=== PATIENT | male | born 1965 | race Caucasian/White ===

== ENCOUNTER 2018-01-21 11:19 | Emergency (ER) | payer OTHER ==
--- NOTE | 2018-01-21 12:50 | ED Physician Documentation ---
PD HPI CPR - Stated complaint Stated Complaint: RT ARM PAIN - Chief complaint Chief Complaint: Cardiac - History obtained from History obtained from: Patient - History of Present Illness Timing - onset: How many hours ago (3) Timing - onset during: Exertion Preceding symptoms: No: Chest pain, Neck pain, Abdominal pain, Back pain, Dyspnea, Diaphoresis, Palpitations, Weakness, NV Contributing factors: No: CAD, Diabetes, Terminal disease, Recent hospital/surgery Recently seen: Not recently seen Fall: No: Fell down, No fall - Additional information Additional information: 52-year-old male with no past medical history and remote cholecystectomy, ambidextrous here from work complaining of right shoulder pain after lifting 30- 40 pounds of wood pellets at work about 2 hours ago. He stated the right shoulder pain radiated down his right arm and now with tingling between his second and third fingers dorsally. Patient denies any recent illness or trauma. Although he stated 4 days ago he had runny nose and body aches. He stated he never had his flu shot. He denies any travel, sick contacts Review of Systems Ten Systems: 10 systems reviewed and negative Constitutional: reports: Myalgias. denies: Fever, Chills Nose: reports: Rhinorrhea / runny nose Cardiac: denies: Chest pain / pressure Respiratory: denies: Dyspnea, Cough GI: denies: Abdominal Pain, Nausea, Vomiting, Diarrhea Musculoskeletal: reports: Extremity pain. denies: Neck pain, Back pain, Extremity swelling Neurologic: denies: Generalized weakness, Focal weakness, Numbness, Head injury PD PAST MEDICAL HISTORY - Past Medical History Past Medical History: Yes Cardiovascular: Hypertension - Past Surgical History Past Surgical History: No - Present Medications Home Medications: Ambulatory Orders Medication Instructions Recorded Confirmed Hydrochlorothiazide 12.5 mg PO DAILY #20 tablet 01/21/18 Ibuprofen [Motrin] 800 mg PO Q8H PRN #30 tablet 01/21/18 Lisinopril 10 mg PO DAILY #20 tablet 01/21/18 - Allergies Allergies/Adverse Reactions: Allergies Allergy/AdvReac Type Severity Reaction Status Date / Time No Known Drug Allergies Allergy Verified 01/21/18 11:26 - Social History Does the pt smoke?: Yes Smoking Status: Former smoker Does the pt drink ETOH?: Yes Does the pt have substance abuse?: No - POLST Patient has POLST: No PD ED PE NORMAL - Vitals Vital signs reviewed: Yes - General General: Alert and oriented X 3, No acute distress, Well developed/nourished - HEENT HEENT: EOMI, Moist mucous membranes, Pharynx benign - Neck Neck: Supple, no meningeal sign, No bony TTP - Cardiac Cardiac: RRR, No murmur - Respiratory Respiratory: No respiratory distress, Clear bilaterally - Abdomen Abdomen: Normal bowel sounds, Soft, Non tender, Non distended - Back Back: No CVA TTP, No spinal TTP - Derm Derm: Normal color, Warm and dry - Extremities Extremities: No deformity, No edema, No calf tenderness / cord, Other (Right shoulder with mild point tenderness of the rotator cuff. Patient expressed discomfort when he attempted to extend, hyperextend and abduction of his right shoulder. Sensation intact temperature normal. Capillary refill less than 2 seconds. Pulses +2 throughout. Hand grasps bilaterally strong 5/5. Right hand no swelling and no tenderness to palpation.) - Neuro Neuro: Alert and oriented X 3 - Psych Psych: Normal mood, Normal affect Results - Vitals Vitals: Vital Signs - 24 hr 01/21/18 01/21/18 01/21/18 11:24 12:08 13:03 Temperature 37.2 C Heart Rate 100 90 92 Respiratory 18 16 16 Rate Blood Pressure 242/124 H 214/128 H 203/118 H O2 Saturation 96 98 97 01/21/18 01/21/18 01/21/18 13:51 13:57 14:23 Temperature Heart Rate 94 Respiratory 16 Rate Blood Pressure 210/120 H 212/110 H 214/129 H O2 Saturation 98 01/21/18 01/21/18 14:42 15:18 Temperature Heart Rate 88 Respiratory Rate Blood Pressure 209/123 H 191/116 H O2 Saturation Oxygen O2 Source Room air - EKG (time done) 1156 Rate: Rate (enter#) Rhythm: NSR Lagrange: Normal Intervals: Normal WA QRS: Normal Ischemia: T wave inversion (Slight T inversion of leads III and aVF.) - Labs Labs: Laboratory Tests 01/21/18 01/21/18 13:05 14:01 POC Whole Bld Glucose 226 H Influenza A (Rapid) Negative Influenza B (Rapid) Negative PD MEDICAL DECISION MAKING - ED course Complexity details: reviewed results, re-evaluated patient, considered differential (Rotator cuff injury, shoulder strain, carpal tunnel syndrome, flu), d/w patient, d/w family ED course: 1345 patient informed of test results. And filled up his work related injury forms. Patient's blood pressure elevated. Patient now tells me that he has history of hypertension and has not taken any medication the past 3 years because he was unemployed got and was homeless. He just started working for [employer] so his insurance has not kicked in yet. Patient refused any labs. He did agreed to treat his right shoulder pain and try Nitropaste for the blood pressure. 1444 his blood pressure continued to be elevated. Will try clonidine and explained to the patient side effects from it. 1532 patient's blood pressure improved is now systolic blood pressure of 191. Patient continues to deny any headaches dizziness chest pain or shortness of breath. Discussed outpatient follow-up with patient. Patient's father is at the bedside and he will make sure to call his primary doctor tomorrow to get an appointment for the patient. Patient will be discharged on lisinopril. Departure - Departure Disposition: Home, Self Care Clinical Impression: Right shoulder injury Qualifiers: Encounter type: initial encounter Qualified Code(s): S49.91XA - Unspecified injury of right shoulder and upper arm, initial encounter Hypertension Qualifiers: Hypertension type: essential hypertension Qualified Code(s): I10 - Essential (primary) hypertension Condition: Stable Instructions: ED HTN Established, ED Shoulder Pain UKO Prescriptions: Hydrochlorothiazide 12.5 mg PO DAILY #20 tablet Ibuprofen [Motrin] 800 mg PO Q8H PRN #30 tablet PRN Reason: PAIN &/OR FEVER Lisinopril 10 mg PO DAILY #20 tablet Comments: Take the prescribed medications.When taking Motrin make sure you take it with food. You may continue the Salonpas that you use for your back pain. Take the blood pressure medications: Lisinopril and hydrochlorothiazide as prescribed. Blood pressure medication may cause you to have dizziness, lightheadedness and increased urination. With increased urination you may decrease your potassium and sodium level. So eat bananas and oranges to supplement your potassium. Call your new primary doctor tomorrow and get appointment for reevaluation of your blood pressure, reevaluation of the new blood pressure medications and order for laboratory since you refused labs to be drawn in the E.R. And for work - no heavy lifting or carrying objects overhead 1 week.If worse return to the e mergency room.
--- NOTE | 2018-01-21 13:42 | XRAY Report ---
Reason: pain tingling Procedure Date: 01/21/2018 Accession Number: [id number] / [id number] Procedure: XR - Shoulder 3 View RT CPT Code: FULL RESULT: EXAM: RIGHT SHOULDER RADIOGRAPHY EXAM DATE: 01/21/2018 01:25 PM. CLINICAL HISTORY: Pain and tingling. COMPARISON: None. TECHNIQUE: 3 views. FINDINGS: Bones: Normal. No fracture or bone lesion. Joints: The glenohumeral and acromioclavicular joints are normal. Soft tissues: The visualized hemithorax is unremarkable. No soft tissue swelling. IMPRESSION: No fracture or dislocation. RADIA
--- NOTE | 2018-01-21 13:42 | XRAY Report ---
Reason: chest pain Procedure Date: 01/21/2018 Accession Number: [id number] / [id number] Procedure: XR - Chest 1 View X-Ray CPT Code: 75173 FULL RESULT: EXAM: CHEST RADIOGRAPHY EXAM DATE: 01/21/2018 01:25 PM. CLINICAL HISTORY: Chest pain. COMPARISON: None. TECHNIQUE: 1 view. FINDINGS: Lungs/Pleura: No focal opacities evident. No pleural effusion. No pneumothorax. Lung volumes are low. Mediastinum: Within exam limitations, the cardiomediastinal contour is normal. Other: None. IMPRESSION: Low lung volumes with no acute cardiopulmonary abnormality detected. RADIA
[2018-01-21] MEDS ORDERED: IBUPROFEN 800 MG TABLET PO STA (14:09)
[2018-01-21] MEDS ORDERED: NITROGLYCERIN 2% PASTE TOP STA (14:10)
[2018-01-21] MEDS ORDERED: cloNIDine 0.1 MG TABLET PO STA (14:47)
[2018-01-21 15:56] VITALS: BP 179/110
== END 2018-01-21 16:00 | disposition home or self-care (01) ==
LOC: ED 11:19
DX: S49.91XA Unspecified injury of right shoulder and upper arm, initial encounter (principal); R94.31 Abnormal electrocardiogram [ECG] [EKG]; I10 Essential (primary) hypertension; Z87.891 Personal history of nicotine dependence; Z91.14 Patient's other noncompliance with medication regimen; X50.0XXA Overexertion from strenuous movement or load, initial encounter; Y92.89 Other specified places as the place of occurrence of the external cause; Y99.0 Civilian activity done for income or pay
CPT/HCPCS: 71045; 73030; 87275; 87276; 93005; 99283; 99284; A9270

== ENCOUNTER 2018-12-19 00:58 | Inpatient (IN) | payer MEDICAID ==
--- NOTE | 2018-12-19 01:17 | ED Physician Documentation ---
History of Present Illness - Stated complaint Stated Complaint: NUMB L ARM/NK PX/BALANCE ISSUE - Chief complaint Chief Complaint: Cardiac - Additonal information Additional information: This is a 53-year-old male who denies known past medical history, though he states he may have prediabetes in the past, who presents with left-sided facial droop and weakness. He states that at 4 PM he noticed that he was somewhat unsteady on his feet, and he noticed weakness on his left side, he went to sleep and when he woke up 30 minutes prior to arrival he had a droop on his left side of his face and pronounced weakness in the left side of his body. He also noted numbness on the left side of his body, He also had some pain in the back of his neck earlier in the evening. He denies chest pain or shortness of breath. No known history of hypertension or hyperlipidemia. He did take aspirin several hours ago. Review of Systems Constitutional: denies: Fever Eyes: denies: Loss of vision Cardiac: denies: Chest pain / pressure Respiratory: denies: Dyspnea GI: denies: Abdominal Pain Skin: denies: Rash Musculoskeletal: reports: Neck pain Neurologic: reports: Focal weakness, Numbness PD PAST MEDICAL HISTORY - Past Medical History Cardiovascular: Hypertension - Past Surgical History Past Surgical History: No - Present Medications Home Medications: Ambulatory Orders Medication Instructions Recorded Confirmed Acetaminophen/Diphenhydramine 1 each PO QPM PRN 12/19/18 12/19/18 [Tylenol Pm Ex-Strength Caplet] Aspirin/Acetaminophen/Caffeine 1 each PO DAILY PRN 12/19/18 12/19/18 [Excedrin Migraine Caplet] Melatonin 5 mg PO QPM PRN 12/19/18 12/19/18 - Allergies Allergies/Adverse Reactions: Allergies Allergy/AdvReac Type Severity Reaction Status Date / Time No Known Drug Allergies Allergy Verified 12/19/18 01:19 - Social History Does the pt smoke?: Yes Smoking Status: Former smoker Does the pt drink ETOH?: Yes Does the pt have substance abuse?: No - POLST Patient has POLST: No PD ED PE NORMAL - General General: Alert and oriented X 3 - HEENT HEENT: Atraumatic - Neck Neck: Supple, no meningeal sign - Cardiac Cardiac: Other (Tachycardic, regular rhythm) - Respiratory Respiratory: No respiratory distress, Clear bilaterally - Abdomen Abdomen: Normal bowel sounds, Non tender, Non distended - Extremities Extremities: No deformity - Neuro Neuro: Other (Patient is alert and oriented, he has a dense left-sided facial droop. Extraocular movements are intact. He has 4-5 strength in his shoulder, he does have drift in his left arm, his right arm is 5 out of 5 strength in the left leg has slight drift as well. He has reduced sensation to pinprick over the left side of his body. He has ataxia with his left hand on [id number] testing.) Results - Vitals Vitals: Vital Signs - 24 hr 12/19/18 12/19/18 12/19/18 01:08 01:15 01:41 Temperature 36.5 C Heart Rate 106 H 98 88 Heart Rate [ Brachial] Respiratory 17 17 17 Rate Blood Pressure 124/69 213/144 H 182/98 H Blood Pressure [Left Brachial artery] O2 Saturation 96 98 96 12/19/18 12/19/18 12/19/18 03:00 07:41 07:44 Temperature 36.4 C L 36.4 C L Heart Rate Heart Rate [ 82 91 Brachial] Respiratory 16 16 Rate Blood Pressure Blood Pressure 176/91 H 189/102 H [Left Brachial artery] O2 Saturation 98 97 12/19/18 08:30 Temperature Heart Rate Heart Rate [ 98 Brachial] Respiratory Rate Blood Pressure Blood Pressure 151/119 H [Left Brachial artery] O2 Saturation Oxygen O2 Source Room air - EKG (time done) 1:41 Other comments: Other comments (Rate 88, rhythm sinus, there is no ST segment elevation. There is slight ST depression and 3 and aVF. Probable left ventricular hypertrophy.) - Labs Labs: Laboratory Tests 12/19/18 12/19/18 12/19/18 01:10 01:10 01:10 WBC 10.7 RBC 5.71 Hgb 17.3 Hct 48.6 MCV 85.1 MCH 30.3 MCHC 35.6 RDW 12.6 Plt Count 282 MPV 10.2 Neut # (Auto) 6.3 Lymph # (Auto) 3.0 [place] # (Auto) 1.0 Eos # (Auto) 0.4 Baso # (Auto) 0.1 Absolute Nucleated RBC 0.00 Nucleated RBC % 0.0 PT 12.0 INR 1.1 APTT 28.7 Sodium Potassium Chloride Carbon Dioxide Anion Gap BUN Creatinine Estimated GFR (MDRD) Glucose POC Whole Bld Glucose 286 H Glycated Hemoglobin Estim Average Glucose Calcium Total Bilirubin AST ALT Alkaline Phosphatase Troponin I High Sens Total Protein Albumin Globulin Albumin/Globulin Ratio Triglycerides Cholesterol LDL Cholesterol, Calc VLDL Cholesterol HDL Cholesterol LDL/HDL Ratio Cholesterol/HDL Ratio Lipase Ethyl Alcohol 12/19/18 12/19/18 12/19/18 01:10 01:10 05:30 WBC 12.4 H RBC 5.58 Hgb 17.1 Hct 47.3 MCV 84.8 MCH 30.6 MCHC 36.2 H RDW 11.9 L Plt Count 280 MPV 10.4 Neut # (Auto) 8.3 H Lymph # (Auto) 2.8 [place] # (Auto) 1.1 H Eos # (Auto) 0.2 Baso # (Auto) 0.1 Absolute Nucleated RBC 0.00 Nucleated RBC % 0.0 PT INR APTT Sodium 138 Potassium 3.3 L Chloride 97 L Carbon Dioxide 28 Anion Gap 13.0 BUN 13 Creatinine 0.9 Estimated GFR (MDRD) 89 Glucose 284 H POC Whole Bld Glucose Glycated Hemoglobin Estim Average Glucose Calcium 9.8 Total Bilirubin 0.9 AST 18 ALT 25 Alkaline Phosphatase 78 Troponin I High Sens 9.4 Total Protein 8.4 H Albumin 4.3 Globulin 4.1 Albumin/Globulin Ratio 1.0 Triglycerides Cholesterol LDL Cholesterol, Calc VLDL Cholesterol HDL Cholesterol LDL/HDL Ratio Cholesterol/HDL Ratio Lipase 52 H Ethyl Alcohol < 5.0 12/19/18 12/19/18 12/19/18 05:30 05:30 05:30 WBC RBC Hgb Hct MCV MCH MCHC RDW Plt Count MPV Neut # (Auto) Lymph # (Auto) [place] # (Auto) Eos # (Auto) Baso # (Auto) Absolute Nucleated RBC Nucleated RBC % PT INR APTT Sodium 139 Potassium 3.4 L Chloride 100 L Carbon Dioxide 27 Anion Gap 12.0 BUN 12 Creatinine 0.9 Estimated GFR (MDRD) 89 Glucose 271 H POC Whole Bld Glucose Glycated Hemoglobin 10.2 H Estim Average Glucose 246 H Calcium 9.8 Total Bilirubin 0.9 AST 18 ALT 24 Alkaline Phosphatase 76 Troponin I High Sens Total Protein 7.8 Albumin 4.0 Globulin 3.8 Albumin/Globulin Ratio 1.1 Triglycerides 265 H Cholesterol 258 H LDL Cholesterol, Calc 161 H VLDL Cholesterol 53 HDL Cholesterol 44 L LDL/HDL Ratio 3.7 Cholesterol/HDL Ratio 5.9 Lipase Ethyl Alcohol 12/19/18 08:01 WBC RBC Hgb Hct MCV MCH MCHC RDW Plt Count MPV Neut # (Auto) Lymph # (Auto) [place] # (Auto) Eos # (Auto) Baso # (Auto) Absolute Nucleated RBC Nucleated RBC % PT INR APTT Sodium Potassium Chloride Carbon Dioxide Anion Gap BUN Creatinine Estimated GFR (MDRD) Glucose POC Whole Bld Glucose 258 H Glycated Hemoglobin Estim Average Glucose Calcium Total Bilirubin AST ALT Alkaline Phosphatase Troponin I High Sens Total Protein Albumin Globulin Albumin/Globulin Ratio Triglycerides Cholesterol LDL Cholesterol, Calc VLDL Cholesterol HDL Cholesterol LDL/HDL Ratio Cholesterol/HDL Ratio Lipase Ethyl Alcohol - Rads (name of study) Head CT WO Radiology: Other (Non acute intracranial abnormality.) CTA Head Radiology: Other CTA neck Radiology: Other (No evidence of large vessel occlusion or stenosis) PD MEDICAL DECISION MAKING - ED course Complexity details: considered differential (Stroke TIA, hypoglycemia, electrolyte abnormality, head bleed) ED course: On arrival patient has an obvious facial droop and some left-sided weakness so he was taken to CT And CTA. He had And elevated blood glucose. His NIH stroke scale is 5, he has dense lower facial droop, drift of his upper arm, and ataxia. I spoke with Dr. Neida Winston of [facility] neurology, she agrees that patient is outside of the window for TPA given his symptoms began at [address] scan shows no bleed, CTA shows no large vessel occlusion. I reviewed the imaging reads with Dr. Winston who stated that he can stay at this hospital as he is not a candidate for neurology intervention/thrombectomy. Patient was given a full dose of aspirin, as he only took a baby aspirin earlier, his labs are notable for hyperglycemia, he has a possible history of untreated diabetes. He has possible LVH on his EKG, raising concern for undiagnosed HTN as well. I updated patient with the results and plan of care. Patient was admitted to the hospital for further work-up and evaluation. Departure - Departure Disposition: ED Place in Observation Clinical Impression: Stroke Qualifiers: CVA mechanism: occlusion Precerebral and cerebral artery: middle cerebral artery Laterality of affected vessel: right Qualified Code(s): I63.511 - Cerebral infarction due to unspecified occlusion or stenosis of right middle cerebral artery Condition: Stable Discharge Date/Time: 12/19/18 04:30 NIHSS - Level of Consciousness Level of consciousness: (0) Alert, Keenly responsive LOC Questions: (0) Answers both Q's correct LOC Commands: (0) Performs both correctly - Gaze Best Gaze: (0) Normal - Visual Visual: (0) No loss - Facial Palsy Facial Palsy: (2) Partial paralysis - Motor Arms (both separate) Motor Arm (right): (0) No drift Motor Arm (left): (1) Drift - Motor Legs (both separate) Motor Leg (right): (0) No drift Motor Leg (left): (1) Drift - Limb Ataxia Limb Ataxia: (1) Present in 1 limb - Sensory Sensory: (0) Normal - Best Language Best Language: (0) No aphasia - Dysarthria Dysarthria: (0) Normal - Extinction and Inattention (formally neg Extinction and inattention: (0) No abnormality - Total Score/Results Total Score/Result: 5
[2018-12-19 01:24] LABS: BASOPHILS # (AUTO) 0.1 10^3/uL (0.0-0.1); BASOPHILS % (AUTO) 0.6 %; EOSINOPHILS # (AUTO) 0.4 10^3/uL (0.0-0.7); EOSINOPHILS % (AUTO) 3.3 %; HGB - HEMOGLOBIN 17.3 g/dL (14.0-18.0); MEAN CORPUSCULAR HEMOGLOBIN 30.3 pg (27.0-31.0); MEAN CORPUSCULAR HGB CONC 35.6 g/dL (32.0-36.0); MEAN CORPUSCULAR VOLUME 85.1 fL (80.0-94.0); MEAN PLATELET VOLUME 10.2 fL (7.4-11.4); MONOCYTES % (AUTO) 8.9 %; NEUTROPHILS # (AUTO) 6.3 10^3/uL (1.5-6.6); NEUTROPHILS % (AUTO) 58.7 %; PLT - PLATELET COUNT 282 10^3/uL (130-450); RED BLOOD COUNT 5.71 10^6/uL (4.70-6.10); RED CELL DISTRIBUTION WIDTH 12.6 % (12.0-15.0); WHITE BLOOD COUNT 10.7 x10^3/uL (4.8-10.8)
[2018-12-19 01:30] LABS: INR 1.1 (0.8-1.2)
[2018-12-19 01:33] LABS: ALBUMIN 4.3 g/dL (3.2-5.5); ALKALINE PHOSPHATASE 78 IU/L (42-121); ALT ALANINE AMINOTRANSFERASE 25 IU/L (10-60); AST ASPARTATE AMINOTRANSFERASE 18 IU/L (10-42); BILIRUBIN,TOTAL 0.9 mg/dL (0.2-1.0); BUN - BLOOD UREA NITROGEN 13 mg/dL (6-20); CALCIUM 9.8 mg/dL (8.5-10.3); CARBON DIOXIDE - CO2 28 mmol/L (21-32); CHLORIDE 97 mmol/L (101-111); CREATININE 0.9 mg/dL (0.6-1.2); GFR - MDRD 89 (>89); GLUCOSE 284 mg/dL (70-100); LIPASE 52 U/L (22-51); SODIUM 138 mmol/L (135-145); TOTAL PROTEIN 8.4 g/dL (6.7-8.2)
[2018-12-19 01:37] LABS: PARTIAL THROMBOPLASTIN TIME 28.7 secs (24.9-33.3)
--- NOTE | 2018-12-19 01:44 | CT Report ---
Reason: numbness and facial droop Procedure Date: 12/19/2018 Accession Number: [id number] / [id number] Procedure: CT - Head W/O Stroke Protocol CPT Code: FULL RESULT: EXAM: CT HEAD EXAM DATE: 12/19/2018 01:27 AM. CLINICAL HISTORY: Left-sided numbness and facial droop. COMPARISON: None. TECHNIQUE: Multiaxial CT images were obtained from the foramen magnum to the vertex. Reformats: Sagittal and coronal. IV contrast: None. In accordance with CT protocol optimization, one or more of the following dose reduction techniques were utilized for this exam: automated exposure control, adjustment of mA and/or KV based on patient size, or use of iterative reconstructive technique. FINDINGS: Parenchyma: No intraparenchymal hemorrhage. No evidence of mass, midline shift, or CT findings of acute infarction. Donohue-white differentiation is distinct. Extraaxial Spaces: Normal for age. No subdural or epidural collections identified. Ventricles: Normal in size and position. Sinuses and Orbits: There is mild mucosal thickening in the posterior right ethmoid sinus. The orbits and mastoid sinuses are unremarkable. Bones: No evidence of fracture or calvarial defect. IMPRESSION: 1. Normal head CT. 2. ASPECTS score is 10 on the right and 10 on the left. RADIA The critical test notification system was initiated by Dr. Flores Pardo at 01:39 AM on 12/19/2018. The above critical test findings were discussed with Dr. Marques by Dr. Flores Pardo at 01:43 AM on 12/19/2018.
[2018-12-19] MEDS ORDERED: IOVERSOL 320 100 ML VIAL IVP ONE ×2 (02:03→02:27)
[2018-12-19] MEDS ORDERED: ASPIRIN CHEW 81 MG TABLET PO STA (02:08)
--- NOTE | 2018-12-19 02:13 | CT Report ---
Reason: Left sided droop and weakness Procedure Date: 12/19/2018 Accession Number: [id number] / [id number] Procedure: CT - ANGIO HEAD W/WO CPT Code: FULL RESULT: EXAM: CT ANGIOGRAM HEAD AND NECK. CT SCAN HEAD WITH CONTRAST. EXAM DATE: 12/19/2018 01:42 AM. CLINICAL HISTORY: Left-sided droop and weakness. COMPARISON: NECK ANGIO 12/19/2018 1:32 AM HEAD W/O STROKE PROTOCOL 12/19/2018 1:26 AM. TECHNIQUE: Routine axial helical CTA imaging was performed from the aortic arch through the [place] [facility] [place]. Routine axial CT imaging of the head was performed following contrast administration. Reconstructions: Routine multiplanar 3D MIP reconstructions. IV contrast: Yes. NASCET Criteria are used for stenosis measurements. In accordance with CT protocol optimization, one or more of the following dose reduction techniques were utilized for this exam: automated exposure control, adjustment of mA and/or KV based on patient size, or use of iterative reconstructive technique. FINDINGS: No abnormal brain parenchymal enhancement is appreciated. CT ANGIOGRAM EXTRACRANIAL CIRCULATION: The visualized arch is unremarkable. Great vessels are patent and unremarkable. Right Carotid: The common carotid, internal carotid, and external carotid arteries are widely patent. No dissection, significant atherosclerotic plaque, or calcification identified. Left Carotid: The common, internal, and external carotid arteries are patent. Minimal calcified plaque is noted at the carotid bifurcation without hemodynamically significant stenosis. Vertebrals: Mild calcified plaque is noted at the origin of the left vertebral artery without significant stenosis. Left vertebral artery origin is widely patent. The left vertebral artery arises directly from the aortic arch, a normal variant. The right vertebral artery is dominant. No hemodynamically significant stenosis is seen in their remaining cervical courses. CT ANGIOGRAM INTRACRANIAL CIRCULATION: The internal carotid arteries are patent from the superior cervical to the supraclinoid portions. There is no atherosclerotic plaque in the carotid siphons. The bilateral A1, A2, M1, M2 segments are patent. A normal caliber anterior communicating artery is present. 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 The right V4 segment is patent. The right PICA is well demonstrated. The basilar artery is patent throughout its course to the terminus. There is normal contrast opacification in the superior cerebellar and posterior cerebral arteries. The posterior communicating arteries are patent. The dural venous sinuses are patent. Other: The visualized upper lungs are clear. The airway is patent. Mild degenerative changes are present throughout the cervical spine. No acute abnormality is seen in the soft tissues of the neck. IMPRESSION: 1. No abnormal brain parenchymal enhancement. 2. Patent dural venous sinuses. 3. Patent intracranial and extracranial arteries without evidence of aneurysm, AVM, or critical stenosis. RADIA The above critical test findings were discussed with Dr. Marques by Dr. Flores Pardo at 02:05 AM on 12/19/2018.
[2018-12-19] MEDS ORDERED: ONDANSETRON 4 MG/2 ML VIAL IVP PRN (02:17)
[2018-12-19] MEDS ORDERED: SODIUM CHLORIDE FLUSH 0.9% 10 ML SYRINGE IVP PRN (02:17)
[2018-12-19] MEDS ORDERED: ONDANSETRON ODT 4 MG TABLET TL PRN (02:17)
--- NOTE | 2018-12-19 02:26 | HISTORY & PHYSICAL EXAMINATION ---
Chief Complaint - Chief Complaint Chief Complaint: Left facial droop, left leg weak since before bed History of Present Illness - Admitted From Admitted From:: Home/ER - History Obtained From Records Reviewed: [facility] History obtained from: patient and ER MD Exam Limitations: none - History of Present Illness HPI Comment/Other: This is a 53-year-old male who denies known past medical history, though he states he may have prediabetes in the past, who presents with left-sided facial droop and weakness. He states that at 4 PM on 12/18, he noticed that he was somewhat unsteady on his feet, and he noticed weakness on his left side. He fell stumbling in the house. He decided to go to bed and when he woke up 30 minutes prior to arrival he had a droop on his left side of his face and pronounced weakness in the left side of his body. He also noted numbness on the left side of his body, He also had some pain in the back of his neck earlier in the evening. But he has chronic neck pain where he hears grinding in his right side of neck. Sometimes he feels like he's cutting off the "fluid in his brain" so he will rotate and turn his neck a lot. 2 night ago woke up with the same kink but his neck was so hot and he woke in a pool of sweat. He denies chest pain or shortness of breath. No known history of hypertension, hyperlipidemia, heart palpitations. No blurred vision. No headache. He did take aspirin sever al hours ago. He doesn't have a PCP. Maybe saw one in 2011 before he moved in with his parents. History - Past Medical History Cardiovascular: reports: Hypertension Respiratory: reports: None Endocrine/Autoimmune: reports: Type 2 diabetes GI: reports: None : reports: Other (sterility due to 2 episodes of mumps as a child) HEENT: reports: None Psych: reports: Anxiety Musculoskeletal: reports: Chronic back pain (in his neck and sciatica) Derm: reports: None MRSA Hx?: No - Family & Social History Family History Comment/Other: Dad is 76 w AVB and a pacer, HTN, dementia, falls. Mom is 75 w DM, dementia. 1 sister healthy. no children Living arrangement: At home Living Situation: Other (with his parents. 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 Missed sign up for insurance last january and has no insurance. Started smoking 1978 and stopped 2006, 1 ppd. Rarely drinks alcohol. Never abused recreational substances. and twice. He moved in w parents to help take care of them. His only sibling lives in [place] and she isn't much help. - Substance History Use: Uses substance without health or social issues: NONE Abuse: Recurrent use of substance despite neg consequences: NONE Dependence: Experiences withdrawal or developed tolerances: NONE - POLST Patient has POLST: No POLST Status: Full Code Meds/Allgy - Home Medications Home Medications: Ambulatory Orders Medication Instructions Recorded Confirmed Hydrochlorothiazide 12.5 mg PO DAILY #20 tablet 01/21/18 12/19/18 Lisinopril 10 mg PO DAILY #20 tablet 01/21/18 12/19/18 - Allergies Allergies/Adverse Reactions: Allergies Allergy/AdvReac Type Severity Reaction Status Date / Time No Known Drug Allergies Allergy Verified 12/19/18 01:19 Review of Systems - Constitutional Constitutional: reports: Night sweats. denies: Fatigue, Fever, Chills, Malaise, Weakness, Poor appetite - Eyes Eyes: denies: Pain, Irritation, Amaurosis, Blurred vision, Vision loss, Dipolpia - Ears, Nose & Throat Ears, Nose & Throat: denies: Ear pain, Hearing loss, Hearing aids, Vertigo, Sore throat, Hoarseness - Cardiovascular Cariovascular: denies: Irregular heart rate, Palpitations, Chest pain, Edema, Exertional dyspnea, Decr. 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) - Integumentary Integumentary: denies: Rash, Pruritis, Lesions, Dryness - Neurological Neurological: reports: Focal weakness (left arm>left leg), Abnormal gait, Incoordination, Slurred speech - Psychiatric Psychiatric: reports: Anxiety (will feel it in his stomach and gets "fluttery" when stressed) - Endocrine Endocrine: denies: Polyuria, Polydypsia, Polyphagia - Hematologic/Lymphatic Hematologic/Lymphatic: denies: Anemia, Bruising Prior Level of Functionality: working, driviing, paying bills, taking care of mom and dad Exam - Vital Signs Reviewed Vital Signs: Yes Vital Signs: Vital Signs x48h Temp Pulse Resp BP Pulse Ox 12/19/18 01:41 88 17 182/98 H 96 12/19/18 01:15 98 17 213/144 H 98 12/19/18 01:08 36.5 C 106 H 17 124/69 96 - Physical Exam General Appearance: positive: No acute distress, Alert, Other (well nourished well developed white male with male pattern baldness, his father is at the bedside) Eyes Bilateral: positive: PERRL, EOMI ENT: positive: Pharynx nml Neck: positive: No JVD. negative: Stiff neck, Carotid bruit Respiratory: positive: Chest non-tender. negative: Wheezes, Rales, Rhonchi Cardiovascular: positive: Regular rate & rhythm. negative: Systolic murmur, Gallop/S4, Friction rub Peripheral Pulses: positive: 1+ Abdomen: positive: Non-tender, No organomegaly, Nml bowel sounds, No distention Skin: positive: No rash, Warm (except his feet are cold), Other (right neck, right scalp and right face are flushed and red with blush mechanism) Extremities: positive: Non-tender, No pedal edema. negative: Joint swelling Neurologic/Psychiatric: positive: Oriented x3, Facial droop, Slurred/abnml speech. negative: CN's nml (2-12) (left facial droop), Motor nml (left arm is 2/5, left leg is 3/5), Sensation nml (face and neck burning hot, feet icy cold) Reflexes: Bicep (R): 1+, Bicep (L): 0, Knee (R): 1+, Knee (L): 0, Ankle (R): 0, Ankle (L): 0 Babinski Reflex: Right: Down, Left: Down Conclusion/Plan - Problem List (1) Stroke Conclusion/Plan: his risk factors include male sex, HTN, DM. Does not meet criteria for tPA after consult with [facility] Neurology Plan: place in OBV neuro checks ASA Statin MRI carotids ECHO PT/OT eval allow for permissve HTN up to 180 systolic, 100 diatolic Qualifiers: CVA mechanism: occlusion Precerebral and cerebral artery: middle cerebral artery Laterality of affected vessel: right Qualified Code(s): I63.511 - Cerebral infarction due to unspecified occlusion or stenosis of right middle cerebral artery (2) Hypertension Conclusion/Plan: permissve HTN for the first 72 hours. Qualifiers: Hypertension type: essential hypertension Qualified Code(s): I10 - Essential (primary) hypertension (3) Uncontrolled type 2 diabetes mellitus Conclusion/Plan: new diagnosis. plan: lantus 10 units now SS before meals. A1c nutrition consult. he driniks his 2 pepsis a day and no insight about why that may be a problem Qualifiers: Glycemic state: with hyperglycemia Qualified Code(s): E11.65 - Type 2 diabetes mellitus with hyperglycemia (4) Hypokalemia Conclusion/Plan: supplement po. no evidence of dysphagia (5) Insufficient social insurance and welfare support Conclusion/Plan: Social work consult in am. - Lab Results Lab results reviewed: Yes Fish Bones: 12/19/18 01:10 12/19/18 01:10 - Diagnostic Imaging Results Diagnostic Imaging Results: positive: Final report reviewed Diagnostic Imaging Results Comments: CT ANGIOGRAM HEAD AND NECK. CT SCAN HEAD WITH CONTRAST. EXAM DATE: 12/19/2018 01:42 AM. CLINICAL HISTORY: Left-sided droop and weakness. COMPARISON: NECK ANGIO 12/19/2018 1:32 AM HEAD W/O STROKE PROTOCOL 12/19/2018 1:26 AM. TECHNIQUE: Routine axial helical CTA imaging was performed from the aortic arch through the [place] of [place]. Routine axial CT imaging of the head was performed following contrast administration. Reconstructions: Routine multiplanar 3D MIP reconstructions. IV contrast: Yes. NASCET Criteria are used for stenosis measurements. In accordance with CT protocol optimization, one or more of the following dose reduction techniques were utilized for this exam: automated exposure control, adjustment of mA and/or KV based on patient size, or use of iterative reconstructive technique. FINDINGS: No abnormal brain parenchymal enhancement is appreciated. CT ANGIOGRAM EXTRACRANIAL CIRCULATION: The visualized arch is unremarkable. Great vessels are patent and unremarkable. Right Carotid: The common carotid, internal carotid, and external carotid arteries are widely patent. No dissection, significant atherosclerotic plaque, or calcification identified. Left Carotid: The common, internal, and external carotid arteries are patent. Minimal calcified plaque is noted at the carotid bifurcation without hemodynamically significant stenosis. Vertebrals: Mild calcified plaque is noted at the origin of the left vertebral artery without significant stenosis. Left vertebral artery origin is widely patent. The left vertebral artery arises directly from the aortic arch, a normal variant. The right vertebral artery is dominant. No hemodynamically significant stenosis is seen in their remaining cervical courses. CT ANGIOGRAM INTRACRANIAL CIRCULATION: The internal carotid arteries are patent from the superior cervical to the supraclinoid portions. There is no atherosclerotic plaque in the carotid siphons. The bilateral A1, A2, M1, M2 segments are patent. A normal caliber anterior communicating artery is present. 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 The right V4 segment is patent. The right PICA is well demonstrated. The basilar artery is patent throughout its course to the terminus. There is normal contrast opacification in the superior cerebellar and posterior cerebral arteries. The posterior communicating arteries are patent. The dural venous sinuses are patent. Other: The visualized upper lungs are clear. The airway is patent. Mild degenerative changes are present throughout the cervical spine. No acute abnormality is seen in the soft tissues of the neck. IMPRESSION: 1. No abnormal brain parenchymal enhancement. 2. Patent dural venous sinuses. 3. Patent intracranial and extracranial arteries without evidence of aneurysm, AVM, or critical stenosis. RADIA The above critical test findings were discussed with Dr. Marques by Dr. Flores Pardo at 02:05 AM on 12/19/2018. CT HEAD EXAM DATE: 12/19/2018 01:27 AM. CLINICAL HISTORY: Left-sided numbness and facial droop. COMPARISON: None. TECHNIQUE: Multiaxial CT images were obtained from the foramen magnum to the vertex. Reformats: Sagittal and coronal. IV contrast: None. In accordance with CT protocol optimization, one or more of the following dose reduction techniques were utilized for this exam: automated exposure control, adjustment of mA and/or KV based on patient size, or use of iterative reconstructive technique. FINDINGS: Parenchyma: No intraparenchymal hemorrhage. No evidence of mass, midline shift, or CT findings of acute infarction. Donohue-white differentiation is distinct. Extraaxial Spaces: Normal for age. No subdural or epidural collections identified. Ventricles: Normal in size and position. Sinuses and Orbits: There is mild mucosal thickening in the posterior right ethmoid sinus. The orbits and mastoid sinuses are unremarkable. Bones: No evidence of fracture or calvarial defect. IMPRESSION: 1. Normal head CT. 2. ASPECTS score is 10 on the right and 10 on the left. - EKG Results EKG Interpreted Independently: No EKG Comparison: No prior EKG EKG Findings: NSR Core Measures - Anticipated LOS I expect patient to be DC'd or transferred within 96 hours.: Yes - DVT/VTE - Prophylaxis VTE/DVT Device ordered at admit?: Yes
[2018-12-19] MEDS: ATORVASTATIN 40 MG TABLET PO SCH ×2 (03:19→20:15)
[2018-12-19 05:51] LABS: BASOPHILS # (AUTO) 0.1 10^3/uL (0.0-0.1); BASOPHILS % (AUTO) 0.6 %; EOSINOPHILS # (AUTO) 0.2 10^3/uL (0.0-0.7); EOSINOPHILS % (AUTO) 1.5 %; HGB - HEMOGLOBIN 17.1 g/dL (14.0-18.0); LYMPHOCYTES # (AUTO) 2.8 10^3/uL (1.5-3.5); LYMPHOCYTES % (AUTO) 22.2 %; MEAN CORPUSCULAR HEMOGLOBIN 30.6 pg (27.0-31.0); MEAN CORPUSCULAR HGB CONC 36.2 g/dL (32.0-36.0); MEAN CORPUSCULAR VOLUME 84.8 fL (80.0-94.0); MEAN PLATELET VOLUME 10.4 fL (7.4-11.4); MONOCYTES # (AUTO) 1.1 10^3/uL (0.0-1.0); MONOCYTES % (AUTO) 8.6 %; NEUTROPHILS # (AUTO) 8.3 10^3/uL (1.5-6.6); NEUTROPHILS % (AUTO) 66.7 %; PLT - PLATELET COUNT 280 10^3/uL (130-450); RED BLOOD COUNT 5.58 10^6/uL (4.70-6.10); RED CELL DISTRIBUTION WIDTH 11.9 % (12.0-15.0); WHITE BLOOD COUNT 12.4 x10^3/uL (4.8-10.8)
[2018-12-19 06:02] LABS: ALBUMIN/GLOBULIN RATIO 1.1 (1.0-2.2); BILIRUBIN,TOTAL 0.9 mg/dL (0.2-1.0); CALCIUM 9.8 mg/dL (8.5-10.3); CREATININE 0.9 mg/dL (0.6-1.2); TOTAL PROTEIN 7.8 g/dL (6.7-8.2)
[2018-12-19 06:09] LABS: CHOL/HDL RATIO 5.9 (<5.0); CHOLESTEROL 258 mg/dL; HDL CHOLESTEROL 44 mg/dL; LDL CHOLESTEROL,CALCULATED 161 mg/dL; LDL/HDL RATIO 3.7 (<3.6); VLDL CHOLESTEROL 53 mg/dL
[2018-12-19 06:17] LABS: HB2 TOTAL 17.9 g/dL; HEMOGLOBIN A1C 1.58 g/dL; HEMOGLOBIN A1C % 10.2 % (4.6-6.2)
[2018-12-19] MEDS ORDERED: ASPIRIN 325 MG TABLET PO SCH (08:00)
[2018-12-19] MEDS: INSULIN GLARGINE 300 UNIT/3 ML PEN SUBQ SCH (08:19)
[2018-12-19] MEDS: INSULIN ASPART 300 UNIT/3 ML PEN SUBQ SCH ×4 (08:20→20:18)
[2018-12-19] MEDS: POTASSIUM CHLORIDE 20 MEQ/15 ML UDC PO SCH (08:20)
[2018-12-19] MEDS: POLYETHYLENE GLYCOL 3350 17 GM PACKET PO SCH (08:22)
[2018-12-19] MEDS: SODIUM CHLORIDE FLUSH 0.9% 10 ML SYRINGE IVP SCH ×2 (08:23→17:10)
[2018-12-19] MEDS ORDERED: LISINOPRIL 5 MG TABLET PO SCH (09:00)
[2018-12-19] MEDS ORDERED: LORazepam 1 MG TABLET PO STA (10:48)
[2018-12-19] MEDS ORDERED: LORazepam 1 MG TABLET PO PRN (14:24)
[2018-12-19] MEDS: ACETAMINOPHEN 325 MG TABLET PO PRN ×2 (14:33→20:15)
--- NOTE | 2018-12-19 16:16 | MRI Report ---
Reason: left facial droop, left arm weak Procedure Date: 12/19/2018 Accession Number: [id number] / [id number] Procedure: MRI - Brain W/O CPT Code: FULL RESULT: MRI BRAIN WITHOUT CONTRAST INDICATION: 53-year-old male. Left facial droop. Left arm weakness. Concern for CVA. TECHNIQUE: 1. T1-weighted sagittal sequence. 2. Coronal fat saturated T2. 3. Axial T1 3D MP RAGE, FLAIR, T2, T2* and DWI. COMPARISON: Head CT 12/19/2018 FINDINGS: The patient was not able to hold still for this examination. There is quite marked image degradation from patient motion on multiple sequences, significantly reducing the diagnostic quality of this examination. The axial T2 FLAIR sequence is virtually nondiagnostic. However, the DWI sequence is of good diagnostic quality. A curvilinear region of diffusion restriction is identified in the right cerebral hemisphere, extending over a distance of roughly 3.75 cm x 0.75 cm on image 104 of series #505. Involvement includes the posterior limb of the right internal capsule and the retrolenticular portion of the internal capsule. In addition, there is further extension, posteriorly into the right peritrigonal region. Evaluation is very limited on sequences provided. There does appear to be associated T2 hyperintensity. The appearance suggests acute to early subacute infarction (likely 7 days old or less). The degree of ADC map hypointensity would suggest a relatively recent infarction probably within the last day or so. No other abnormal diffusion restriction is demonstrated. There is no obvious complicating hemorrhage on the T2*GRE sequence. The patency of intracranial arteries cannot be confirmed on images provided. Ventricular size appears normal. No other specific diagnostic findings. IMPRESSION: 1. The patient was not able to hold still for this examination. There is significant image degradation from patient motion. 2. However, the DWI sequence is of relatively good, diagnostic quality. There is a curvilinear region of acute to early subacute, nonhemorrhagic infarction in the right cerebral hemisphere. Involvement includes the posterior limb and retrolenticular portion of the right internal capsule in a vascular distribution that typically relates to the cisternal segment of the ipsilateral anterior choroidal artery. However, there also is extension posteriorly, into the right peritrigonal region and this would be an atypical distribution for an anterior choroidal artery infarction. This suggests that there may be involvement of more than a single artery. The call report notification system was initiated by Dr. Placido Silva at 04:15 PM on 12/19/2018. The above call report findings were discussed with Dr. Vásquez by Dr. Placido Silva at 04:19 PM on 12/19/2018.
--- NOTE | 2018-12-19 16:26 | Ultrasound Report ---
Reason: CVA. Procedure Date: 12/19/2018 Accession Number: [id number] / [id number] Procedure: US - Carotid Doppler Complete CPT Code: FULL RESULT: EXAM: BILATERAL CAROTID AND VERTEBRAL ARTERY DUPLEX DOPPLER ULTRASOUND: EXAM DATE: 12/19/2018 03:31 PM CLINICAL HISTORY: Cerebral vascular accident. COMPARISON: None. TECHNIQUE: Grayscale imaging, color Doppler, and duplex spectral Doppler were used to evaluate the carotid and vertebral arteries bilaterally. Static images were obtained. FINDINGS: No significant plaque is identified in the right or left common or internal carotid arteries. Normal antegrade flow is present in bilateral vertebral arteries. VELOCITIES (cm/sec): Right CCA mid: PSV 74.4 cm/sec CCA dist: PSV 55.1 cm/sec ICA prox: PSV 97.4 cm/sec, EDV 8.5 cm/sec ICA mid: PSV 80.5 cm/sec, EDV 29.9 cm/sec ICA dist: PSV 84.0 cm/sec, EDV 18.7 cm/sec ECA: PSV 68.8 cm/sec Vert: PSV 48.9 cm/sec ICA/CCA: 1.0 Left CCA mid: PSV 66.8 cm/sec CCA dist: PSV 64.7 cm/sec ICA prox: PSV 49.4 cm/sec, EDV 13.3 cm/sec ICA mid: PSV 64.2 cm/sec, EDV 21.5 cm/sec ICA dist: PSV 60.0 cm/sec, EDV 18.6 cm/sec ECA: PSV 66.7 cm/sec Vert: PSV 18.4 cm/sec ICA/CCA: 1.0 IMPRESSION: 1. No significant bilateral carotid artery plaquing. 2. In the right carotid artery there are no elevated carotid artery velocities to suggest hemodynamically significant stenosis. 3. In the left carotid artery there are no elevated carotid artery velocities to suggest hemodynamically significant stenosis. 4. Normal antegrade flow is present in bilateral vertebral arteries. General Recommendations: Stenosis =50% ICA - Follow-up ultrasound 6-12 months Stenosis <50% ICA - High Risk Patient with plaque - Follow-up ultrasound 1-2 years Normal Study but High Risk Patient - Follow-up ultrasound 3-5 years Management recommendations and diagnostic criteria are based on current IAC endorsed standards in Carotid Artery Stenosis: Grayscale and Doppler Ultrasound Diagnosis. Validated velocity measurements with angiographic measurements and velocity criteria are extrapolated from diameter data as defined by the Society of Radiologists in Ultrasound Consensus Conference Radiology 2003; 229;340-346. RADIA
--- NOTE | 2018-12-19 18:36 | PROVIDER PROGRESS NOTE ---
Hospitalist Cross-cover Note - Cross-Cover Note Cross-Cover Note: Patient was seen and examined this morning. He was made inpatient from observation as discussed during multi-disciplinary rounds. The patient was quite impulsive this morning and concern was that he would not be able to tolerate the MRI. He was given oral Lorazepam and he felt more comfortable. He was evaluated by PT and acute rehab on discharge was recommended. He did go for his MRI today but unfortunately it was a poor study except for the DWI sequence. I spoke with the Radiologist and there was concern that this may have been an embolic stroke as it appears more than one artery was involved. I then spoke with Neurology at [facility] to discuss the case. Neurology recommended obtaining an Echo with bubble study to evaluate for a PFO and thrombus. If there was a PFO, lower extremity dopplers would be obtained to evaluate for DVT and paradoxical embolus as cause of stroke. If TTE was questionable for a left atrial thrombus then a VALENTIN may be necessary. If the TTE was negative then an outpatient holter monitor was recommended. They recommended continuing Aspirin and Plavix for three weeks followed by monotherapy with Aspirin alone. If his telemetry were to reveal atrial fibrillation or there was evidence of thrombus on TTE then he would be a candidate for anticoagulation.
[2018-12-20] MEDS: SODIUM CHLORIDE FLUSH 0.9% 10 ML SYRINGE IVP SCH ×3 (00:08→18:26)
[2018-12-20 05:45] LABS: BASOPHILS # (AUTO) 0.1 10^3/uL (0.0-0.1); BASOPHILS % (AUTO) 0.6 %; EOSINOPHILS # (AUTO) 0.2 10^3/uL (0.0-0.7); EOSINOPHILS % (AUTO) 2.3 %; HGB - HEMOGLOBIN 17.1 g/dL (14.0-18.0); LYMPHOCYTES # (AUTO) 2.3 10^3/uL (1.5-3.5); LYMPHOCYTES % (AUTO) 23.9 %; MEAN CORPUSCULAR HEMOGLOBIN 29.8 pg (27.0-31.0); MEAN PLATELET VOLUME 10.4 fL (7.4-11.4); MONOCYTES % (AUTO) 10.3 %; NEUTROPHILS # (AUTO) 6.1 10^3/uL (1.5-6.6); NEUTROPHILS % (AUTO) 62.5 %; PLT - PLATELET COUNT 283 10^3/uL (130-450); RED BLOOD COUNT 5.74 10^6/uL (4.70-6.10); RED CELL DISTRIBUTION WIDTH 12.5 % (12.0-15.0); WHITE BLOOD COUNT 9.7 x10^3/uL (4.8-10.8)
[2018-12-20 05:55] LABS: CREATININE 0.9 mg/dL (0.6-1.2)
--- NOTE | 2018-12-20 09:07 | PROVIDER PROGRESS NOTE ---
Subjective - Prog Note Date Prog Note Date: 12/20/18 - Subjective Subjective: He did not sleep well overnight so he has been catching up on his sleep this morning. Reports feeling the same. Still has a small headache. His left sided weakness has not improved. He reports no numbness. He did not have a pepsi today. Current Medications - Current Medications Current Medications: Active Medications Acetaminophen (Tylenol) 650 mg PO Q4HR PRN PRN Reason: Pain or Fever > 38C (100.4F) Last Admin: 12/19/18 20:15 Dose: 650 mg Aspirin (Ecotrin) 81 mg PO DAILY [facility] Last Admin: 12/20/18 09:59 Dose: 81 mg Atorvastatin Calcium (Lipitor) 80 mg PO QPM [facility] Last Admin: 12/19/18 20:15 Dose: 80 mg Clopidogrel Bisulfate (Plavix) 75 mg PO DAILY [facility] Last Admin: 12/20/18 09:59 Dose: 75 mg Insulin Aspart (Novolog) 3 - 11 unit SUBQ 0800,1200,1700,2100 [facility]; Protocol Last Admin: 12/20/18 11:21 Dose: 7 unit Insulin Aspart (Novolog) 7 unit SUBQ TIDWM [facility] Insulin Glargine (Lantus Solostar) 15 unit SUBQ QDBREAKFAST [facility] Lorazepam (Ativan) 1 mg PO ONCE PRN PRN Reason: Agitation Stop: 12/20/18 14:23 Last Admin: 12/19/18 14:34 Dose: 1 mg Ondansetron HCl (Zofran Inj) 4 mg IVP Q6HR PRN PRN Reason: Nausea / Vomiting Ondansetron HCl (Zofran Odt) 4 mg TL Q6HR PRN PRN Reason: Nausea / Vomiting Oxycodone HCl (Roxicodone) 5 mg PO Q4HR PRN PRN Reason: Pain 5 to 7 Polyethylene Glycol (Miralax) 17 gm PO DAILY [facility] Last Admin: 12/20/18 10:00 Dose: Not Given Potassium Chloride () 20 meq PO DAILYWM [facility] Last Admin: 12/20/18 09:58 Dose: 20 meq Sodium Chloride (Normal Saline Flush 0.9%) 10 ml IVP PRN PRN PRN Reason: NEEDED PER PROVIDER ORDERS Last Admin: 12/19/18 08:23 Dose: 10 ml Sodium Chloride (Normal Saline Flush 0.9%) 10 ml IVP 0100,0900,1700 [facility] Last Admin: 12/20/18 10:01 Dose: 10 ml Acetaminophen/Diphenhydramine [Tylenol Pm Ex-Strength Caplet] 1 each PO QPM PRN 12/19/18 Aspirin/Acetaminophen/Caffeine [Excedrin Migraine Caplet] 1 each PO DAILY PRN 12/19/18 Melatonin 5 mg PO QPM PRN 12/19/18 Objective - Vital Signs/Intake & Output Reviewed Vital Signs: Yes Vital Signs: Vital Signs x48h Temp Pulse Resp BP BP Pulse Ox 12/20/18 07:33 36.3 C L 82 16 123/94 H 99 12/20/18 05:00 36.4 C L 63 16 136/66 H 96 Intake & Output: Intake & Output 12/17/18 12/18/18 12/19/18 12/20/18 23:59 23:59 23:59 23:59 Intake Total 1100 480 Output Total 900 500 Balance 200 -20 - Objective General Appearance: positive: No acute distress, Alert Eyes Bilateral: positive: Conjunctivae nml, No scleral icterus, Other (Cataract left eye) ENT: positive: ENT inspection nml Neck: positive: Nml inspection Respiratory: positive: No respiratory distress. negative: Wheezes, Rales, Rhonchi Cardiovascular: positive: Regular rate & rhythm, No murmur. negative: Tachycardia, Bradycardia Abdomen: positive: Non-tender, No distention. negative: Tenderness, Guarding, Rebound Skin: positive: Color nml, No rash, Warm, Dry Neurologic/Psychiatric: positive: Oriented x3, Sensation nml, Weakness (1/1 motor strength in left upper extremity. 2-3/5 motor strength in left lower ex tremity. Sensation intact.), Facial droop (Left sided). negative: Motor nml, Disoriented to person, Disoriented to place, Disoriented to time - Lab Results Fish Bones: 12/20/18 05:00 12/20/18 05:00 Other Labs: Lab Results x24hrs 12/20/18 12/20/18 12/20/18 Range/Units 07:20 05:00 05:00 WBC 9.7 (4.8-10.8) x10^3/uL RBC 5.74 (4.70-6.10) 10^6/uL Hgb 17.1 (14.0-18.0) g/dL Hct 48.8 (42.0-52.0) % MCV 85.0 (80.0-94.0) fL MCH 29.8 (27.0-31.0) pg MCHC 35.0 (32.0-36.0) g/dL RDW 12.5 (12.0-15.0) % Plt Count 283 (130-450) 10^3/uL MPV 10.4 (7.4-11.4) fL Neut # (Auto) 6.1 (1.5-6.6) 10^3/uL Lymph # (Auto) 2.3 (1.5-3.5) 10^3/uL [place] # (Auto) 1.0 (0.0-1.0) 10^3/uL Eos # (Auto) 0.2 (0.0-0.7) 10^3/uL Baso # (Auto) 0.1 (0.0-0.1) 10^3/uL Absolute Nucleated RBC 0.00 x10^3/uL Nucleated RBC % 0.0 /100WBC Sodium 135 (135-145) mmol/L Potassium 3.5 (3.5-5.0) mmol/L Chloride 99 L (101-111) mmol/L Carbon Dioxide 26 (21-32) mmol/L Anion Gap 10.0 (6-13) BUN 21 H (6-20) mg/dL Creatinine 0.9 (0.6-1.2) mg/dL Estimated GFR (MDRD) 89 (>89) Glucose 271 H (70-100) mg/dL POC Whole Bld Glucose 289 H (70 - 100) mg/dL Calcium 9.0 (8.5-10.3) mg/dL Magnesium 2.0 (1.7-2.8) mg/dL 12/19/18 12/19/18 12/19/18 Range/Units 20:12 16:38 11:01 WBC (4.8-10.8) x10^3/uL RBC (4.70-6.10) 10^6/uL Hgb (14.0-18.0) g/dL Hct (42.0-52.0) % MCV (80.0-94.0) fL MCH (27.0-31.0) pg MCHC (32.0-36.0) g/dL RDW (12.0-15.0) % Plt Count (130-450) 10^3/uL MPV (7.4-11.4) fL Neut # (Auto) (1.5-6.6) 10^3/uL Lymph # (Auto) (1.5-3.5) 10^3/uL [place] # (Auto) (0.0-1.0) 10^3/uL Eos # (Auto) (0.0-0.7) 10^3/uL Baso # (Auto) (0.0-0.1) 10^3/uL Absolute Nucleated RBC x10^3/uL Nucleated RBC % /100WBC Sodium (135-145) mmol/L Potassium (3.5-5.0) mmol/L Chloride (101-111) mmol/L Carbon Dioxide (21-32) mmol/L Anion Gap (6-13) BUN (6-20) mg/dL Creatinine (0.6-1.2) mg/dL Estimated GFR (MDRD) (>89) Glucose (70-100) mg/dL POC Whole Bld Glucose 239 H 232 H 286 H (70 - 100) mg/dL Calcium (8.5-10.3) mg/dL Magnesium (1.7-2.8) mg/dL ABX Reporting Has patient been on IV antibiotics over the past 48 hours?: No Assessment/Plan - Problem List (1) Right sided cerebral hemisphere cerebrovascular accident (CVA) Impression: Evident on MRI on the brain which was of poor quality. Radiology was concerned for possible emoblic etiology given the appearance of more than one artery involvement. CTA was unremarkable. Continues to have significant left upper ext remity weakness and left lower extremity weakness. Will continue Aspirin and Plavix for 3 weeks as recommended by Neurology. This will be followed by montherapy with Aspirin. Continue Atorvastatin. Will obtain Echo with bubble study tomorrow. If there is evidence of PFO will obtain lower extremity d opplers. If there is concern for thrombus then he will be anticoagulated or he will require transfer to another facility for [facility]. Continue on telemetry where he has been in sinus rhythm. Appreciate PT/OT input. Will require inpatient acute rehab on discharge. (2) Uncontrolled type 2 diabetes mellitus Impression: His blood glucose remains elevated and his A1c was 10.2%. Continue Lantus and sliding scale while inpatient. Added Novolog with meals. CC diet. Qualifiers: Glycemic state: with hyperglycemia Qualified Code(s): E11.65 - Type 2 diabetes mellitus with hyperglycemia (3) Hypertension Impression: We allowed for permissive hypertension over the first 24 hours. His blood pressure is improved today but still hypertensive. Will initiate low dose Lisino pril given he is a diabetic. Qualifiers: Hypertension type: essential hypertension Qualified Code(s): I10 - Essential (primary) hypertension (4) Hypokalemia Impression: Resolved after oral replacement. Continue daily supplementation. (5) Insufficient social insurance and welfare support Impression: We are thankful that he was able to obtain insurance coverage with [employer]. [facility] paper work was sign. Appreciate Social Work input.
[2018-12-20] MEDS: INSULIN ASPART 300 UNIT/3 ML PEN SUBQ SCH ×7 (09:54→20:56)
[2018-12-20] MEDS: INSULIN GLARGINE 300 UNIT/3 ML PEN SUBQ SCH (09:55)
[2018-12-20] MEDS: POTASSIUM CHLORIDE 20 MEQ/15 ML UDC PO SCH (09:58)
[2018-12-20] MEDS: CLOPIDOGREL 75 MG TABLET PO SCH (09:59)
[2018-12-20] MEDS: ASPIRIN EC 81 MG TABLET PO SCH (09:59)
[2018-12-20] MEDS: POLYETHYLENE GLYCOL 3350 17 GM PACKET PO SCH (10:00)
[2018-12-20] MEDS: ACETAMINOPHEN 325 MG TABLET PO PRN ×2 (14:37→18:26)
[2018-12-20] MEDS ORDERED: LISINOPRIL 5 MG TABLET PO STA (16:37)
[2018-12-20 18:00] LABS: CREATININE,URINE 373.6 mg/dL; MICROALBUM/CREATININE RATIO,UR 89.1 ug/mg (<30.0); MICROALBUMIN,URINE 33.3 mg/dL (0-300.0)
[2018-12-20] MEDS: ATORVASTATIN 40 MG TABLET PO SCH (20:54)
[2018-12-20] MEDS: oxyCODONE 5 MG TABLET PO PRN (22:39)
[2018-12-21] MEDS: SODIUM CHLORIDE FLUSH 0.9% 10 ML SYRINGE IVP SCH ×3 (01:35→18:13)
[2018-12-21] MEDS: oxyCODONE 5 MG TABLET PO PRN ×3 (05:47→22:33)
[2018-12-21] MEDS ORDERED: INSULIN GLARGINE 300 UNIT/3 ML PEN SUBQ SCH (08:00)
[2018-12-21] MEDS ORDERED: LISINOPRIL 5 MG TABLET PO SCH (09:00)
[2018-12-21] MEDS: POLYETHYLENE GLYCOL 3350 17 GM PACKET PO SCH (09:46)
[2018-12-21] MEDS: ASPIRIN EC 81 MG TABLET PO SCH (09:46)
[2018-12-21] MEDS: CLOPIDOGREL 75 MG TABLET PO SCH (09:46)
[2018-12-21] MEDS: POTASSIUM CHLORIDE 20 MEQ/15 ML UDC PO SCH (09:47)
[2018-12-21] MEDS: ACETAMINOPHEN 325 MG TABLET PO PRN ×2 (09:47→21:13)
[2018-12-21] MEDS: INSULIN ASPART 300 UNIT/3 ML PEN SUBQ SCH ×7 (09:49→21:08)
--- NOTE | 2018-12-21 16:39 | PROVIDER PROGRESS NOTE ---
Subjective - Prog Note Date Prog Note Date: 12/21/18 - Subjective Subjective: He had an unwitnessed fall yesterday afternoon while sitting on the chair. He hit the left side of his head but reported no neurologic deficits. This morning he reports feeling the same. Still has left sided weakness of his upper extremity and lower extremity. No dyspnea or chest pain. Current Medications - Current Medications Current Medications: Active Medications Acetaminophen (Tylenol) 650 mg PO Q4HR PRN PRN Reason: Pain or Fever > 38C (100.4F) Last Admin: 12/21/18 09:47 Dose: 650 mg Aspirin (Ecotrin) 81 mg PO DAILY [facility] Last Admin: 12/21/18 09:46 Dose: 81 mg Atorvastatin Calcium (Lipitor) 80 mg PO QPM [facility] Last Admin: 12/20/18 20:54 Dose: 80 mg Clopidogrel Bisulfate (Plavix) 75 mg PO DAILY [facility] Last Admin: 12/21/18 09:46 Dose: 75 mg Insulin Aspart (Novolog) 3 - 11 unit SUBQ 0800,1200,1700,2100 [facility]; Protocol Last Admin: 12/21/18 11:59 Dose: 7 unit Insulin Aspart (Novolog) 10 unit SUBQ TIDWM [facility] Last Admin: 12/21/18 11:59 Dose: 10 unit Insulin Glargine (Lantus Solostar) 20 unit SUBQ QDBREAKFAST [facility] Lisinopril (Zestril) 5 mg PO DAILY [facility] Last Admin: 12/21/18 09:47 Dose: 5 mg Ondansetron HCl (Zofran Inj) 4 mg IVP Q6HR PRN PRN Reason: Nausea / Vomiting Ondansetron HCl (Zofran Odt) 4 mg TL Q6HR PRN PRN Reason: Nausea / Vomiting Oxycodone HCl (Roxicodone) 5 mg PO Q4HR PRN PRN Reason: Pain 5 to 7 Last Admin: 12/21/18 09:47 Dose: 5 mg Polyethylene Glycol (Miralax) 17 gm PO DAILY [facility] Last Admin: 12/21/18 09:46 Dose: 17 gm Potassium Chloride () 20 meq PO DAILYWM [facility] Last Admin: 12/21/18 09:47 Dose: 20 meq Sodium Chloride (Normal Saline Flush 0.9%) 10 ml IVP PRN PRN PRN Reason: NEEDED PER PROVIDER ORDERS Last Admin: 12/19/18 08:23 Dose: 10 ml Sodium Chloride (Normal Saline Flush 0.9%) 10 ml IVP 0100,0900,1700 [facility] Last Admin: 12/21/18 09:47 Dose: 10 ml Acetaminophen/Diphenhydramine [Tylenol Pm Ex-Strength Caplet] 1 each PO QPM PRN 12/19/18 Aspirin/Acetaminophen/Caffeine [Excedrin Migraine Caplet] 1 each PO DAILY PRN 12/19/18 Melatonin 5 mg PO QPM PRN 12/19/18 Objective - Vital Signs/Intake & Output Reviewed Vital Signs: Yes Vital Signs: Vital Signs x48h Temp Pulse Pulse Resp BP BP Pulse Ox 12/21/18 16:06 36.5 C 78 18 154/86 H 97 12/21/18 14:47 36.5 C 83 16 146/84 H 96 12/21/18 12:12 36.5 C 83 16 146/84 H 96 12/21/18 11:16 95 146/84 H 12/21/18 11:12 36.4 C L 85 18 133/84 H 99 12/21/18 08:49 36.4 C L 85 18 133/84 H 99 Pulse Ox 12/21/18 16:06 12/21/18 14:47 12/21/18 12:12 12/21/18 11:16 97 12/21/18 11:12 12/21/18 08:49 Intake & Output: Intake & Output 12/18/18 12/19/18 12/20/18 12/21/18 23:59 23:59 23:59 23:59 Intake Total 1100 1580 340 Output Total 900 1050 225 Balance 200 530 115 - Objective General Appearance: positive: No acute distress, Alert Eyes Bilateral: positive: Normal inspection ENT: positive: ENT inspection nml Neck: positive: Nml inspection Respiratory: positive: No respiratory distress. negative: Wheezes, Rales, Rhonchi Cardiovascular: positive: Regular rate & rhythm, No murmur. negative: Tachyca rdia, Systolic murmur, Diastolic murmur Skin: positive: Color nml, No rash, Warm, Dry Neurologic/Psychiatric: positive: Oriented x3, Weakness (1/5 motor strength in left upper extremity and about 3/5 in left lower extremity.), Facial droop, Slurred/abnml speech. negative: Disoriented to person, Disoriented to place, Disoriented to time - Lab Results Fish Bones: 12/20/18 05:00 12/20/18 05:00 Other Labs: Lab Results x24hrs 12/21/18 12/21/18 12/20/18 Range/Units 11:44 08:29 20:45 POC Whole Bld Glucose 228 H 249 H 210 H (70 - 100) mg/dL Urine Creatinine mg/dL Urine Microalbumin (0-300.0) mg/dL Microalb/Creat Ratio (<30.0) ug/mg 12/20/18 12/20/18 Range/Units 17:30 16:46 POC Whole Bld Glucose 150 H (70 - 100) mg/dL Urine Creatinine 373.6 mg/dL Urine Microalbumin 33.3 (0-300.0) mg/dL Microalb/Creat Ratio 89.1 H (<30.0) ug/mg ABX Reporting Has patient been on IV antibiotics over the past 48 hours?: No Assessment/Plan - Problem List (1) Right sided cerebral hemisphere cerebrovascular accident (CVA) Impression: He continues to have residual left sided weakness of the upper and lower extremity. He is awaiting placement to inpatient rehab. I discussed his echo findings with Cardiology and the calcification of his aortic valve is felt to be sclerosis and not a vegetation or mass such as an elastoma. He will remain on Plavix 75mg and Aspirin 81 mg for three weeks until January 10 and then aspirin monotherapy alone. Continue PT/OT while hospitalized. (2) Uncontrolled type 2 diabetes mellitus Impression: His blood glucose remains elevated and his A1c was 10.2%. Will increase Lantus and Novolog. Continue sliding scale. perioperative educator consult. CC diet. Qualifiers: Glycemic state: with hyperglycemia Qualified Code(s): E11.65 - Type 2 diabetes mellitus with hyperglycemia (3) Hypertension Impression: His blood pressure remains elevated. Will increase Lisinopril dose to 10mg daily. Qualifiers: Hypertension type: essential hypertension Qualified Code(s): I10 - Essential (primary) hypertension (4) Hypokalemia Impression: Resolved with oral replacement. (5) Insufficient social insurance and welfare support Impression: Resolved. He now has medicaid.
[2018-12-21] MEDS ORDERED: OXYMETAZOLINE HCL 100 SPRAYS BOTTLE NAS PRN (18:46)
[2018-12-21] MEDS: ATORVASTATIN 40 MG TABLET PO SCH (21:09)
[2018-12-22] MEDS: SODIUM CHLORIDE FLUSH 0.9% 10 ML SYRINGE IVP SCH ×3 (02:51→19:31)
[2018-12-22] MEDS: oxyCODONE 5 MG TABLET PO PRN ×3 (04:55→20:39)
[2018-12-22] MEDS: ASPIRIN EC 81 MG TABLET PO SCH (09:21)
[2018-12-22] MEDS: FENOFIBRATE 48 MG TABLET PO SCH (09:21)
[2018-12-22] MEDS: POLYETHYLENE GLYCOL 3350 17 GM PACKET PO SCH (09:21)
[2018-12-22] MEDS: CLOPIDOGREL 75 MG TABLET PO SCH (09:22)
[2018-12-22] MEDS: LISINOPRIL 5 MG TABLET PO SCH (09:22)
[2018-12-22] MEDS: POTASSIUM CHLORIDE 20 MEQ/15 ML UDC PO SCH (09:22)
[2018-12-22] MEDS: INSULIN GLARGINE 300 UNIT/3 ML PEN SUBQ SCH (09:23)
[2018-12-22] MEDS: INSULIN ASPART 300 UNIT/3 ML PEN SUBQ SCH ×7 (09:24→20:40)
[2018-12-22] MEDS: ACETAMINOPHEN 325 MG TABLET PO PRN (09:57)
[2018-12-22] MEDS ORDERED: CAFFEINE PO PRN (13:50)
[2018-12-22] MEDS ORDERED: ASPIRIN PO PRN (13:50)
[2018-12-22] MEDS ORDERED: ACETAMINOPHEN PO PRN (13:50)
--- NOTE | 2018-12-22 13:52 | PROVIDER PROGRESS NOTE ---
Assessment/Plan - Problem List (1) Right sided cerebral hemisphere cerebrovascular accident (CVA) Assessment/Plan: Today he passed a swallowing eval. Continue to work with PT and OT is planned. Transfer to an inpatient rehab with neurology and PT OT is the plan, he is agreeable. Continue daily aspirin and Plavix for 3 mos then daily ASA lifelong. (2) Uncontrolled type 2 diabetes mellitus Qualifiers: Glycemic state: with hyperglycemia Qualified Code(s): E11.65 - Type 2 diabetes mellitus with hyperglycemia Assessment/Plan: This is a new Dx for him, since he presented with an A1c of 10.2. Insulin management is started with Lantus and Novolog. Continue sliding scale. in service educator consult and CC diet. (3) Hyperlipidemia associated with type 2 diabetes mellitus Assessment/Plan: He has been started on Atorvastatin 80 mg qpm. Will add Tricor for very elevated Triglycerides as well. (4) Hypertension Qualifiers: Hypertension type: essential hypertension Qualified Code(s): I10 - Essent ial (primary) hypertension Assessment/Plan: Allowing permissive HTN: he is running 140-170/80-90. Lisinopril was increased yesterday slightly, continue this. (5) Insomnia Assessment/Plan: Will restart his Melatonin and Tylenol pm, at his request. - Current Meds Current Meds: Current Medications Generic Name Dose Route Start Last Admin Trade Name Freq PRN Reason Stop Dose Admin Acetaminophen 650 mg 12/19/18 14:23 12/22/18 09:57 Tylenol PO 650 mg Q4HR PRN Administration Pain or Fever > 38C (100.4F) Aspirin 81 mg 12/20/18 09:00 12/22/18 09:21 Ecotrin PO 81 mg DAILY [facility] Administration Atorvastatin Calcium 80 mg 12/19/18 02:20 12/21/18 21:09 Lipitor PO 80 mg QPM [facility] Administration Clopidogrel Bisulfate 75 mg 12/20/18 09:00 12/22/18 09:22 Plavix PO 75 mg DAILY [facility] Administration Fenofibrate 134 mg 12/22/18 09:00 12/22/18 09:21 Tricor PO 134 mg DAILY [facility] Administration Insulin Aspart 3 - 11 unit 12/19/18 17:00 12/22/18 12:22 Novolog SUBQ 7 unit 0800,1200,1700,2100 [facility] Administration Protocol Insulin Aspart 10 unit 12/21/18 12:00 12/22/18 12:23 Novolog SUBQ 10 unit TIDWM [facility] Administration Insulin Glargine 20 unit 12/22/18 08:00 12/22/18 09:23 Lantus Solostar SUBQ 20 unit QDBREAKFAST [facility] Administration Lisinopril 10 mg 12/22/18 09:00 12/22/18 09:22 Zestril PO 10 mg DAILY [facility] Administration Oxycodone HCl 5 mg 12/19/18 02:17 12/22/18 09:57 Roxicodone PO 5 mg Q4HR PRN Administration Pain 5 to 7 Polyethylene Glycol 17 gm 12/19/18 09:00 12/22/18 09:21 Miralax PO 17 gm DAILY [facility] Administration Potassium Chloride 20 meq 12/19/18 08:00 12/22/18 09:22 PO 20 meq DAILYWM [facility] Administration Sodium Chloride 10 ml 12/19/18 02:17 12/19/18 08:23 Normal Saline Flush 0.9% IVP 10 ml PRN PRN Administration NEEDED PER PROVIDER ORDERS Sodium Chloride 10 ml 12/19/18 09:00 12/22/18 09:21 Normal Saline Flush 0.9% IVP 10 ml 0100,0900,1700 [facility] Administration - Lab Result Fish Bone Diagrams: 12/20/18 05:00 12/20/18 05:00 - Additional Planning My Orders: My Active Orders 12/22/18 09:00 Fenofibrate [Tricor] 134 mg PO DAILY 12/22/18 13:50 Acetaminophen/Diphenhydramine [Tylenol Pm Ex-Strength Caplet] 1 each PO QPM PRN Aspirin/Acetaminophen/Caffeine [Excedrin Migraine Caplet] 1 each PO DAILY PRN Melatonin [Melatonin] 5 mg PO QPM PRN Subjective - Subjective Patient Reports: Other (Unchanged weakness of L arm and leg. Pt also c/o insomnia then is tired all day.) Objective Vital Signs: Vital Signs - 24 hr 12/21/18 12/21/18 12/21/18 14:47 16:06 20:36 Temperature 36.5 C 36.5 C 37 C Heart Rate [ 83 78 81 Brachial] Respiratory 16 18 16 Rate Blood Pressure 146/84 H 154/86 H 118/85 H [Right Brachial artery] O2 Saturation 96 97 100 12/22/18 12/22/18 12/22/18 01:00 04:44 07:59 Temperature 36.5 C 36.8 C 36.5 C Heart Rate [ 68 78 82 Brachial] Respiratory 16 18 16 Rate Blood Pressure 149/89 H 156/84 H 148/89 H [Right Brachial artery] O2 Saturation 96 96 100 12/22/18 11:15 Temperature 37.2 C Heart Rate [ 87 Brachial] Respiratory 16 Rate Blood Pressure 170/85 H [Right Brachial artery] O2 Saturation 98 Oxygen O2 Source Room air I&O (Last 24 Hrs): Intake and Output Totals x24h 12/20/18 12/21/18 12/22/18 23:59 23:59 23:59 Intake Total 1580 710 650 Output Total 1050 625 675 Balance 530 85 -25 General: Alert, Oriented x3 HEENT: Mucous membr. moist/pink, Other (Eyes are crossed) Neck: Supple Neuro: Focal Deficits Cardiovascular: Regular rate, No murmurs Respiratory: No respiratory distress Abdomen: Soft Extremities: No edema - Results Results: Laboratory Results WBC 9.7 x10^3/uL (4.8-10.8) 12/20/18 05:00 RBC 5.74 10^6/uL (4.70-6.10) 12/20/18 05:00 Hgb 17.1 g/dL (14.0-18.0) 12/20/18 05:00 Hct 48.8 % (42.0-52.0) 12/20/18 05:00 MCV 85.0 fL (80.0-94.0) 12/20/18 05:00 MCH 29.8 pg (27.0-31.0) 12/20/18 05:00 MCHC 35.0 g/dL (32.0-36.0) 12/20/18 05:00 RDW 12.5 % (12.0-15.0) 12/20/18 05:00 Plt Count 283 10^3/uL (130-450) 12/20/18 05:00 MPV 10.4 fL (7.4-11.4) 12/20/18 05:00 Neut # (Auto) 6.1 10^3/uL (1.5-6.6) 12/20/18 05:00 Lymph # (Auto) 2.3 10^3/uL (1.5-3.5) 12/20/18 05:00 [place] # (Auto) 1.0 10^3/uL (0.0-1.0) 12/20/18 05:00 Eos # (Auto) 0.2 10^3/uL (0.0-0.7) 12/20/18 05:00 Baso # (Auto) 0.1 10^3/uL (0.0-0.1) 12/20/18 05:00 Absolute Nucleated RBC 0.00 x10^3/uL 12/20/18 05:00 Nucleated RBC % 0.0 /100WBC 12/20/18 05:00 PT 12.0 secs (9.9-12.6) 12/19/18 01:10 INR 1.1 (0.8-1.2) 12/19/18 01:10 APTT 28.7 secs (24.9-33.3) 12/19/18 01:10 Sodium 135 mmol/L (135-145) 12/20/18 05:00 Potassium 3.5 mmol/L (3.5-5.0) 12/20/18 05:00 Chloride 99 mmol/L (101-111) L 12/20/18 05:00 Carbon Dioxide 26 mmol/L (21-32) 12/20/18 05:00 Anion Gap 10.0 (6-13) 12/20/18 05:00 BUN 21 mg/dL (6-20) H 12/20/18 05:00 Creatinine 0.9 mg/dL (0.6-1.2) 12/20/18 05:00 Estimated GFR (MDRD) 89 (>89) 12/20/18 05:00 Glucose 271 mg/dL (70-100) H 12/20/18 05:00 POC Whole Bld Glucose 261 mg/dL (70 - 100) H 12/22/18 11:12 Glycated Hemoglobin 10.2 % (4.6-6.2) H 12/19/18 05:30 Estim Average Glucose 246 (70-100) H 12/19/18 05:30 Calcium 9.0 mg/dL (8.5-10.3) 12/20/18 05:00 Magnesium 2.0 mg/dL (1.7-2.8) 12/20/18 05:00 Total Bilirubin 0.9 mg/dL (0.2-1.0) 12/19/18 05:30 AST 18 IU/L (10-42) 12/19/18 05:30 ALT 24 IU/L (10-60) 12/19/18 05:30 Alkaline Phosphatase 76 IU/L (42-121) 12/19/18 05:30 Troponin I High Sens 9.4 pg/mL (2.3-19.7) 12/19/18 01:10 Total Protein 7.8 g/dL (6.7-8.2) 12/19/18 05:30 Albumin 4.0 g/dL (3.2-5.5) 12/19/18 05:30 Globulin 3.8 g/dL (2.1-4.2) 12/19/18 05:30 Albumin/Globulin Ratio 1.1 (1.0-2.2) 12/19/18 05:30 Triglycerides 265 mg/dL (-149) H 12/19/18 05:30 Cholesterol 258 mg/dL (-199) H 12/19/18 05:30 LDL Cholesterol, Calc 161 mg/dL (-129) H 12/19/18 05:30 VLDL Cholesterol 53 mg/dL 12/19/18 05:30 HDL Cholesterol 44 mg/dL (60-) L 12/19/18 05:30 LDL/HDL Ratio 3.7 (<3.6) 12/19/18 05:30 Cholesterol/HDL Ratio 5.9 (<5.0) 12/19/18 05:30 Lipase 52 U/L (22-51) H 12/19/18 01:10 Urine Creatinine 373.6 mg/dL 12/20/18 17:30 Urine Microalbumin 33.3 mg/dL (0-300.0) 12/20/18 17:30 Microalb/Creat Ratio 89.1 ug/mg (<30.0) H 12/20/18 17:30 Ethyl Alcohol < 5.0 mg/dL 12/19/18 01:10
[2018-12-22] MEDS: SENNA 8.6 MG TABLET PO SCH (16:10)
[2018-12-22] MEDS: DOCUSATE SODIUM 250 MG CAPSULE PO SCH (16:10)
[2018-12-22] MEDS: ATORVASTATIN 40 MG TABLET PO SCH (20:39)
[2018-12-22] MEDS ORDERED: MELATONIN 5 MG PO PRN (21:00)
[2018-12-22] MEDS ORDERED: ACETAMINOPHEN 500 MG TABLET PO PRN (21:00)
[2018-12-23] MEDS: diphenhydrAMINE 25 MG CAPSULE PO PRN ×2 (00:12→21:23)
[2018-12-23] MEDS: ACETAMINOPHEN 325 MG TABLET PO PRN ×2 (00:12→22:42)
[2018-12-23] MEDS: oxyCODONE 5 MG TABLET PO PRN (00:16)
[2018-12-23] MEDS: SODIUM CHLORIDE FLUSH 0.9% 10 ML SYRINGE IVP SCH ×4 (00:16→17:40)
[2018-12-23] MEDS: INSULIN ASPART 300 UNIT/3 ML PEN SUBQ SCH ×7 (08:20→21:18)
[2018-12-23] MEDS: DOCUSATE SODIUM 250 MG CAPSULE PO SCH (08:21)
[2018-12-23] MEDS: CLOPIDOGREL 75 MG TABLET PO SCH (08:21)
[2018-12-23] MEDS: FENOFIBRATE 48 MG TABLET PO SCH (08:21)
[2018-12-23] MEDS: INSULIN GLARGINE 300 UNIT/3 ML PEN SUBQ SCH (08:21)
[2018-12-23] MEDS: SENNA 8.6 MG TABLET PO SCH (08:21)
[2018-12-23] MEDS: ASPIRIN EC 81 MG TABLET PO SCH (08:22)
[2018-12-23] MEDS: LISINOPRIL 5 MG TABLET PO SCH (08:22)
[2018-12-23] MEDS: POLYETHYLENE GLYCOL 3350 17 GM PACKET PO SCH (08:22)
[2018-12-23] MEDS: POTASSIUM CHLORIDE 20 MEQ/15 ML UDC PO SCH (08:22)
--- NOTE | 2018-12-23 15:01 | XRAY Report ---
Reason: Fall while here, on 12/20/18 Procedure Date: 12/23/2018 Accession Number: [id number] / [id number] Procedure: XR - Forearm LT CPT Code: FULL RESULT: EXAM: LEFT FOREARM RADIOGRAPHY EXAM DATE: 12/23/2018 12:50 PM. CLINICAL HISTORY: Left forearm injury after fall. COMPARISON: None. TECHNIQUE: 2 views. FINDINGS: Bones: Normal. No fractures or bone lesions. Joints: Normal. No effusions or subluxations in the visualized wrist or elbow joints. Soft Tissues: Normal. No soft tissue swelling. IMPRESSION: Normal forearm radiography. [facility]
--- NOTE | 2018-12-23 15:03 | XRAY Report ---
Reason: Fall while here, on 12/20/18 Procedure Date: 12/23/2018 Accession Number: [id number] / [id number] Procedure: XR - Shoulder 3 View LT CPT Code: FULL RESULT: EXAM: LEFT SHOULDER RADIOGRAPHY EXAM DATE: 12/23/2018 12:52 PM. CLINICAL HISTORY: Fall while here, on 12/20/18. COMPARISON: None . TECHNIQUE: 3 views. FINDINGS: Bones: Normal. No fracture or bone lesion. Joints: The glenohumeral and acromioclavicular joints appear normal. Soft tissues: The visualized hemithorax is unremarkable. No soft tissue swelling. IMPRESSION: No fracture or dislocation evident. [facility]
--- NOTE | 2018-12-23 16:45 | PROVIDER PROGRESS NOTE ---
Assessment/Plan - Problem List (1) Right sided cerebral hemisphere cerebrovascular accident (CVA) Assessment/Plan: He is still "impulsive", per staff, which is why he fell 2 days ago. He is getting PT and OT rehab. He is a candidate for inpt rehab, which SW is working on. Continue statin, ASA, Plavix (2) Uncontrolled type 2 diabetes mellitus Qualifiers: Glycemic state: with hyperglycemia Qualified Code(s): E11.65 - Type 2 diabetes mellitus with hyperglycemia Assessment/Plan: Continue cc diet, LAntus and Reg ss Insulin (3) Hyperlipidemia associated with type 2 diabetes mellitus Assessment/Plan: Continue statin and Tricor (4) Hypertension Qualifiers: Hypertension type: essential hypertension Qualified Code(s): I10 - Essential (primary) hypertension Assessment/Plan: Allowing permissive HTN; parameters were provided for the RNs. (5) Diarrhea Assessment/Plan: Will check C diff PCR, stop Colace and Miralax and order Imodium prn. (6) Insomnia Assessment/Plan: His home meds of Melatonin and Tylenol pm were restarted. (7) Fall Qualifiers: Encounter type: subsequent encounter Qualified Code(s): W19.XXXD - Unspecified fall, subsequent encounter Assessment/Plan: This was an unwitnessed fall, and the staff thinks he is impulsive, and moved too quickly The XRays of L shoulder and XRay of L forearm werre done today and showed no fracture or dislocation. - Current Meds Current Meds: Current Medications Generic Name Dose Route Start Last Admin Trade Name Freq PRN Reason Stop Dose Admin Acetaminophen 650 mg 12/19/18 14:23 12/23/18 00:12 Tylenol PO 650 mg Q4HR PRN Administration Pain or Fever > 38C (100.4F) Aspirin 81 mg 12/20/18 09:00 12/23/18 08:22 Ecotrin PO 81 mg DAILY TAMARA Administration Atorvastatin Calcium 80 mg 12/19/18 02:20 12/22/18 20:39 Lipitor PO 80 mg QPM TAMARA Administration Clopidogrel Bisulfate 75 mg 12/20/18 09:00 12/23/18 08:21 Plavix PO 75 mg DAILY TAMARA Administration Diphenhydramine HCl 25 mg 12/22/18 21:00 12/23/18 00:12 Benadryl PO 25 mg QPM PRN Administration SLEEP Docusate Sodium 250 - 500 mg 12/22/18 15:00 12/23/18 08:21 Colace 250mg Capsule PO 250 mg DAILY TAMARA Administration Fenofibrate 134 mg 12/22/18 09:00 12/23/18 08:21 Tricor PO 134 mg DAILY TAMARA Administration Insulin Aspart 3 - 11 unit 12/19/18 17:00 12/23/18 11:51 Novolog SUBQ 5 unit 0800,1200,1700,2100 TAMARA Administration Protocol Insulin Aspart 10 unit 12/21/18 12:00 12/23/18 11:51 Novolog SUBQ 10 unit TIDWM TAMARA Administration Insulin Glargine 20 unit 12/22/18 08:00 12/23/18 08:21 Lantus Solostar SUBQ 20 unit QDBREAKFAST TAMARA Administration Lisinopril 10 mg 12/22/18 09:00 12/23/18 08:22 Zestril PO 10 mg DAILY TAMAAR Administration Oxycodone HCl 5 mg 12/19/18 02:17 12/23/18 00:16 Roxicodone PO 5 mg Q4HR PRN Administration Pain 5 to 7 Polyethylene Glycol 17 gm 12/19/18 09:00 12/23/18 08:22 Miralax PO 17 gm DAILY TAMARA Administration Potassium Chloride 20 meq 12/19/18 08:00 12/23/18 08:22 PO 20 meq DAILYWM TAMARA Administration Senna 8.6 - 17.2 mg 12/22/18 15:00 12/23/18 08:21 Senokot PO 8.6 mg DAILY TAMARA Administration Sodium Chloride 10 ml 12/19/18 02:17 12/19/18 08:23 Normal Saline Flush 0.9% IVP 10 ml PRN PRN Administration NEEDED PER PROVIDER ORDERS Sodium Chloride 10 ml 12/19/18 09:00 12/23/18 08:22 Normal Saline Flush 0.9% IVP 10 ml 0100,0900,1700 TAMARA Administration - Lab Result Fish Bone Diagrams: 12/20/18 05:00 12/20/18 05:00 - Additional Planning My Orders: My Active Orders 12/22/18 21:00 Acetaminophen [Tylenol] 500 mg PO QPM PRN Patient Own Med [Patient Own Medication] 1 each PO QPM PRN diphenhydrAMINE [Benadryl] 25 mg PO QPM PRN Subjective - Subjective Patient Reports: Diarrhea Objective Vital Signs: Vital Signs - 24 hr 12/22/18 12/22/18 12/23/18 19:59 20:20 00:27 Temperature 36.9 C 36.2 C L Heart Rate [ 80 77 89 Brachial] Respiratory 20 20 Rate Blood Pressure 168/94 H 163/84 H 154/93 H [Right Brachial artery] O2 Saturation 98 99 12/23/18 12/23/18 12/23/18 06:14 07:32 09:00 Temperature 36.9 C 36.3 C L Heart Rate [ 80 77 68 Brachial] Respiratory 18 16 17 Rate Blood Pressure 145/78 H 157/102 H 131/92 H [Right Brachial artery] O2 Saturation 99 99 100 12/23/18 12/23/18 12:22 15:23 Temperature 36.6 C 37.5 C Heart Rate [ 72 81 Brachial] Respiratory 20 18 Rate Blood Pressure 160/99 H 162/110 H [Right Brachial artery] O2 Saturation 97 98 Oxygen O2 Source Room air I&O (Last 24 Hrs): Intake and Output Totals x24h 12/21/18 12/22/18 12/23/18 23:59 23:59 23:59 Intake Total 710 1050 710 Output Total 625 775 675 Balance 85 275 35 General: Alert HEENT: Mucous membr. moist/pink, Other (eyes crossed and R gaze preference) Neck: Supple Neuro: Other (L arm and leg weakness) Cardiovascular: Regular rate Respiratory: No respiratory distress Abdomen: Normal bowel sounds Extremities: No edema - Results Results: Laboratory Results WBC 9.7 x10^3/uL (4.8-10.8) 12/20/18 05:00 RBC 5.74 10^6/uL (4.70-6.10) 12/20/18 05:00 Hgb 17.1 g/dL (14.0-18.0) 12/20/18 05:00 Hct 48.8 % (42.0-52.0) 12/20/18 05:00 MCV 85.0 fL (80.0-94.0) 12/20/18 05:00 MCH 29.8 pg (27.0-31.0) 12/20/18 05:00 MCHC 35.0 g/dL (32.0-36.0) 12/20/18 05:00 RDW 12.5 % (12.0-15.0) 12/20/18 05:00 Plt Count 283 10^3/uL (130-450) 12/20/18 05:00 MPV 10.4 fL (7.4-11.4) 12/20/18 05:00 Neut # (Auto) 6.1 10^3/uL (1.5-6.6) 12/20/18 05:00 Lymph # (Auto) 2.3 10^3/uL (1.5-3.5) 12/20/18 05:00 Burt # (Auto) 1.0 10^3/uL (0.0-1.0) 12/20/18 05:00 Eos # (Auto) 0.2 10^3/uL (0.0-0.7) 12/20/18 05:00 Baso # (Auto) 0.1 10^3/uL (0.0-0.1) 12/20/18 05:00 Absolute Nucleated RBC 0.00 x10^3/uL 12/20/18 05:00 Nucleated RBC % 0.0 /100WBC 12/20/18 05:00 PT 12.0 secs (9.9-12.6) 12/19/18 01:10 INR 1.1 (0.8-1.2) 12/19/18 01:10 APTT 28.7 secs (24.9-33.3) 12/19/18 01:10 Sodium 135 mmol/L (135-145) 12/20/18 05:00 Potassium 3.5 mmol/L (3.5-5.0) 12/20/18 05:00 Chloride 99 mmol/L (101-111) L 12/20/18 05:00 Carbon Dioxide 26 mmol/L (21-32) 12/20/18 05:00 Anion Gap 10.0 (6-13) 12/20/18 05:00 BUN 21 mg/dL (6-20) H 12/20/18 05:00 Creatinine 0.9 mg/dL (0.6-1.2) 12/20/18 05:00 Estimated GFR (MDRD) 89 (>89) 12/20/18 05:00 Glucose 271 mg/dL (70-100) H 12/20/18 05:00 POC Whole Bld Glucose 133 mg/dL (70 - 100) H 12/23/18 16:31 Glycated Hemoglobin 10.2 % (4.6-6.2) H 12/19/18 05:30 Estim Average Glucose 246 (70-100) H 12/19/18 05:30 Calcium 9.0 mg/dL (8.5-10.3) 12/20/18 05:00 Magnesium 2.0 mg/dL (1.7-2.8) 12/20/18 05:00 Total Bilirubin 0.9 mg/dL (0.2-1.0) 12/19/18 05:30 AST 18 IU/L (10-42) 12/19/18 05:30 ALT 24 IU/L (10-60) 12/19/18 05:30 Alkaline Phosphatase 76 IU/L (42-121) 12/19/18 05:30 Troponin I High Sens 9.4 pg/mL (2.3-19.7) 12/19/18 01:10 Total Protein 7.8 g/dL (6.7-8.2) 12/19/18 05:30 Albumin 4.0 g/dL (3.2-5.5) 12/19/18 05:30 Globulin 3.8 g/dL (2.1-4.2) 12/19/18 05:30 Albumin/Globulin Ratio 1.1 (1.0-2.2) 12/19/18 05:30 Triglycerides 265 mg/dL (-149) H 12/19/18 05:30 Cholesterol 258 mg/dL (-199) H 12/19/18 05:30 LDL Cholesterol, Calc 161 mg/dL (-129) H 12/19/18 05:30 VLDL Cholesterol 53 mg/dL 12/19/18 05:30 HDL Cholesterol 44 mg/dL (60-) L 12/19/18 05:30 LDL/HDL Ratio 3.7 (<3.6) 12/19/18 05:30 Cholesterol/HDL Ratio 5.9 (<5.0) 12/19/18 05:30 Lipase 52 U/L (22-51) H 12/19/18 01:10 Urine Creatinine 373.6 mg/dL 12/20/18 17:30 Urine Microalbumin 33.3 mg/dL (0-300.0) 12/20/18 17:30 Microalb/Creat Ratio 89.1 ug/mg (<30.0) H 12/20/18 17:30 Ethyl Alcohol < 5.0 mg/dL 12/19/18 01:10
[2018-12-23] MEDS: LOPERAMIDE 2 MG CAPSULE PO PRN ×2 (17:09→19:25)
[2018-12-23] MEDS: ATORVASTATIN 40 MG TABLET PO SCH (21:18)
[2018-12-24] MEDS: SODIUM CHLORIDE FLUSH 0.9% 10 ML SYRINGE IVP SCH ×2 (02:45→08:00)
[2018-12-24] MEDS: oxyCODONE 5 MG TABLET PO PRN ×2 (02:46→08:09)
[2018-12-24] MEDS: FENOFIBRATE 48 MG TABLET PO SCH (07:58)
[2018-12-24] MEDS: LISINOPRIL 5 MG TABLET PO SCH (07:58)
[2018-12-24] MEDS: CLOPIDOGREL 75 MG TABLET PO SCH (07:58)
[2018-12-24] MEDS: INSULIN ASPART 300 UNIT/3 ML PEN SUBQ SCH ×4 (07:59→12:15)
[2018-12-24] MEDS: INSULIN GLARGINE 300 UNIT/3 ML PEN SUBQ SCH (07:59)
[2018-12-24] MEDS: ASPIRIN EC 81 MG TABLET PO SCH (07:59)
[2018-12-24] MEDS: POTASSIUM CHLORIDE 20 MEQ/15 ML UDC PO SCH (07:59)
[2018-12-24] MEDS: SENNA 8.6 MG TABLET PO SCH (08:00)
[2018-12-24 08:55] LABS: ALBUMIN 3.8 g/dL (3.2-5.5); BILIRUBIN,TOTAL 1.2 mg/dL (0.2-1.0); CALCIUM 9.2 mg/dL (8.5-10.3); TOTAL PROTEIN 7.5 g/dL (6.7-8.2)
[2018-12-24 09:03] LABS: HGB - HEMOGLOBIN 16.8 g/dL (14.0-18.0); MEAN CORPUSCULAR HEMOGLOBIN 30.1 pg (27.0-31.0); MEAN CORPUSCULAR HGB CONC 34.6 g/dL (32.0-36.0); MEAN CORPUSCULAR VOLUME 87.1 fL (80.0-94.0); MEAN PLATELET VOLUME 10.3 fL (7.4-11.4); RED BLOOD COUNT 5.58 10^6/uL (4.70-6.10); RED CELL DISTRIBUTION WIDTH 12.7 % (12.0-15.0); WHITE BLOOD COUNT 10.4 x10^3/uL (4.8-10.8)
--- NOTE | 2018-12-24 11:46 | PROVIDER PROGRESS NOTE ---
Assessment/Plan - Problem List (1) Right sided cerebral hemisphere cerebrovascular accident (CVA) Assessment/Plan: He started raising his L leg against gravity. PT and OT therapy daily is planned and then a transfer to inpatient rehab post- stroke. The staff thinks he is impulsive but also possibly not cognizant of his impairment. I have requested a formal cognitive eval by OT and/or Speech Therapy. (2) Uncontrolled type 2 diabetes mellitus Qualifiers: Glycemic state: with hyperglycemia Qualified Code(s): E11.65 - Type 2 diabetes mellitus with hyperglycemia (3) Hyperlipidemia associated with type 2 diabetes mellitus Assessment/Plan: His Lipitior 80 mg dose will be decreased due to rising LFTs. Continue nnew Tricor. (4) Hypertension Qualifiers: Hypertension type: essential hypertension Qualified Code(s): I10 - Es sential (primary) hypertension Assessment/Plan: Allowing permissive HTN and parameters written for RNs. (5) Diarrhea Assessment/Plan: The C diff panel was neg, Imodium started and Miralax and Colace were stopped. (7) Fall Qualifiers: Encounter type: subsequent encounter Qualified Code(s): W19.XXXD - Unspecified fall, subsequent encounter Assessment/Plan: No fractures or dislocations seen on imaging of the L shoulder and L arm, imaged yesterday. The fall was unwitnessed, occurred on 12/20 and the staff thinks it is because theo wei was impulsive but also possibly not cognizant of his impairment. I have requested a formal cognitive eval by OT and/or Speech Therapy. - Current Meds Current Meds: Current Medications Generic Name Dose Route Start Last Admin Trade Name Freq PRN Reason Stop Dose Admin Aspirin 81 mg 12/20/18 09:00 12/24/18 07:59 Ecotrin PO 81 mg DAILY TAMARA Administration Clopidogrel Bisulfate 75 mg 12/20/18 09:00 12/24/18 07:58 Plavix PO 75 mg DAILY TAMARA Administration Diphenhydramine HCl 25 mg 12/22/18 21:00 12/23/18 21:23 Benadryl PO 25 mg QPM PRN Administration SLEEP Fenofibrate 134 mg 12/22/18 09:00 12/24/18 07:58 Tricor PO 134 mg DAILY TAMARA Administration Insulin Aspart 3 - 11 unit 12/19/18 17:00 12/24/18 07:59 Novolog SUBQ 3 unit 0800,1200,1700,2100 TAMARA Administration Protocol Insulin Aspart 10 unit 12/21/18 12:00 12/24/18 08:00 Novolog SUBQ 10 unit TIDWM TAMARA Administration Lisinopril 10 mg 12/22/18 09:00 12/24/18 07:58 Zestril PO 10 mg DAILY TAMARA Administration Loperamide HCl 2 mg 12/23/18 16:50 12/23/18 19:25 Imodium PO 2 mg QID PRN Administration Diarrhea Oxycodone HCl 5 mg 12/19/18 02:17 12/24/18 08:09 Roxicodone PO 5 mg Q4HR PRN Administration Pain 5 to 7 Senna 8.6 - 17.2 mg 12/22/18 15:00 12/24/18 08:00 Senokot PO Not Given DAILY TAMARA Sodium Chloride 10 ml 12/19/18 02:17 12/19/18 08:23 Normal Saline Flush 0.9% IVP 10 ml PRN PRN Administration NEEDED PER PROVIDER ORDERS Sodium Chloride 10 ml 12/19/18 09:00 12/24/18 08:00 Normal Saline Flush 0.9% IVP 10 ml 0100,0900,1700 TAMARA Administration - Lab Result Fish Bone Diagrams: 12/24/18 08:28 12/24/18 08:28 - Additional Planning My Orders: My Active Orders 12/23/18 16:50 Loperamide [Imodium] 2 mg PO QID PRN 12/23/18 16:54 Notify Provider - VS Parameter [RC] PRN 12/24/18 Evaluate and Treat OT [OT] Routine 12/25/18 08:00 Insulin Glargine [Lantus Solostar] 22 unit SUBQ QDBREAKFAST Objective Vital Signs: Vital Signs - 24 hr 12/23/18 12/23/18 12/23/18 12:22 15:23 19:25 Temperature 36.6 C 37.5 C 37.1 C Heart Rate [ 72 81 84 Brachial] Respiratory 20 18 18 Rate Blood Pressure 160/99 H 162/110 H 132/86 H [Right Brachial artery] O2 Saturation 97 98 96 12/23/18 12/24/18 12/24/18 23:39 05:00 07:49 Temperature 36.4 C L 36.8 C 37.0 C Heart Rate [ 73 81 78 Brachial] Respiratory 18 18 18 Rate Blood Pressure 137/83 H 153/83 H 151/86 H [Right Brachial artery] O2 Saturation 96 99 93 Oxygen O2 Source Room air I&O (Last 24 Hrs): Intake and Output Totals x24h 12/22/18 12/23/18 12/24/18 23:59 23:59 23:59 Intake Total 1050 1580 500 Output Total 775 1055 350 Balance 275 525 150 - Results Results: Laboratory Results WBC 10.4 x10^3/uL (4.8-10.8) 12/24/18 08:28 RBC 5.58 10^6/uL (4.70-6.10) 12/24/18 08:28 Hgb 16.8 g/dL (14.0-18.0) 12/24/18 08:28 Hct 48.6 % (42.0-52.0) 12/24/18 08:28 MCV 87.1 fL (80.0-94.0) 12/24/18 08:28 MCH 30.1 pg (27.0-31.0) 12/24/18 08:28 MCHC 34.6 g/dL (32.0-36.0) 12/24/18 08:28 RDW 12.7 % (12.0-15.0) 12/24/18 08:28 Plt Count 279 10^3/uL (130-450) 12/24/18 08:28 MPV 10.3 fL (7.4-11.4) 12/24/18 08:28 Neut # (Auto) 6.1 10^3/uL (1.5-6.6) 12/20/18 05:00 Lymph # (Auto) 2.3 10^3/uL (1.5-3.5) 12/20/18 05:00 [place] # (Auto) 1.0 10^3/uL (0.0-1.0) 12/20/18 05:00 Eos # (Auto) 0.2 10^3/uL (0.0-0.7) 12/20/18 05:00 Baso # (Auto) 0.1 10^3/uL (0.0-0.1) 12/20/18 05:00 Absolute Nucleated RBC 0.00 x10^3/uL 12/20/18 05:00 Nucleated RBC % 0.0 /100WBC 12/20/18 05:00 PT 12.0 secs (9.9-12.6) 12/19/18 01:10 INR 1.1 (0.8-1.2) 12/19/18 01:10 APTT 28.7 secs (24.9-33.3) 12/19/18 01:10 Sodium 137 mmol/L (135-145) 12/24/18 08:28 Potassium 4.2 mmol/L (3.5-5.0) 12/24/18 08:28 Chloride 101 mmol/L (101-111) 12/24/18 08:28 Carbon Dioxide 28 mmol/L (21-32) 12/24/18 08:28 Anion Gap 8.0 (6-13) 12/24/18 08:28 BUN 23 mg/dL (6-20) H 12/24/18 08:28 Creatinine 1.0 mg/dL (0.6-1.2) 12/24/18 08:28 Estimated GFR (MDRD) 78 (>89) L 12/24/18 08:28 Glucose 210 mg/dL (70-100) H 12/24/18 08:28 POC Whole Bld Glucose 175 mg/dL (70 - 100) H 12/24/18 07:52 Glycated Hemoglobin 10.2 % (4.6-6.2) H 12/19/18 05:30 Estim Average Glucose 246 (70-100) H 12/19/18 05:30 Calcium 9.2 mg/dL (8.5-10.3) 12/24/18 08:28 Magnesium 2.0 mg/dL (1.7-2.8) 12/20/18 05:00 Total Bilirubin 1.2 mg/dL (0.2-1.0) H 12/24/18 08:28 AST 45 IU/L (10-42) H 12/24/18 08:28 ALT 89 IU/L (10-60) H 12/24/18 08:28 Alkaline Phosphatase 86 IU/L (42-121) 12/24/18 08:28 Troponin I High Sens 9.4 pg/mL (2.3-19.7) 12/19/18 01:10 Total Protein 7.5 g/dL (6.7-8.2) 12/24/18 08:28 Albumin 3.8 g/dL (3.2-5.5) 12/24/18 08:28 Globulin 3.7 g/dL (2.1-4.2) 12/24/18 08:28 Albumin/Globulin Ratio 1.0 (1.0-2.2) 12/24/18 08:28 Triglycerides 265 mg/dL (-149) H 12/19/18 05:30 Cholesterol 258 mg/dL (-199) H 12/19/18 05:30 LDL Cholesterol, Calc 161 mg/dL (-129) H 12/19/18 05:30 VLDL Cholesterol 53 mg/dL 12/19/18 05:30 HDL Cholesterol 44 mg/dL (60-) L 12/19/18 05:30 LDL/HDL Ratio 3.7 (<3.6) 12/19/18 05:30 Cholesterol/HDL Ratio 5.9 (<5.0) 12/19/18 05:30 Lipase 52 U/L (22-51) H 12/19/18 01:10 Urine Creatinine 373.6 mg/dL 12/20/18 17:30 Urine Microalbumin 33.3 mg/dL (0-300.0) 12/20/18 17:30 Microalb/Creat Ratio 89.1 ug/mg (<30.0) H 12/20/18 17:30 Stl C. diff Tox B Gene NEGATIVE (NEGATIVE) 12/23/18 17:00 Ethyl Alcohol < 5.0 mg/dL 12/19/18 01:10
--- NOTE | 2018-12-24 15:17 | DISCHARGE SUMMARY ---
Discharge Summary Admit Date: 12/19/18 Discharge Date: 12/24/18 Discharging Provider: Dr Xenia Gibson MD Primary Care Provider: None Code Status: Attempt Resuscitation Condition at Discharge: Poor Discharge Disposition: 02 Transfer Acute Care Hosp Discharge Facility Name: [facility] - DIAGNOSES Admission Diagnoses: (1) Stroke (2) HTN (3) Uncontrolled type 2 diabetes mellitus (4) Hypokalemia Discharge Diagnoses with Status of Each Condition: See below - HPI History of Present Illness: From the admission H&P of Dr Taryn Fallon: This is a 53-year-old male who denies known past medical history, though he states he may have had prediabetes in the past, who now presents with left-sided facial droop and weakness. He states that at 4 PM on 12/18, he noticed that he was somewhat unsteady on his feet, and he noticed weakness on his left side. He fell stumbling in the house. He decided to go to bed and when he woke up 30 minutes prior to arrival here, he had a droop on his left side of his face and pronounced weakness in the left side of his body. He also noted numbness on the left side of his body. He had some pain in the back of his neck earlier in the evening, but he has chronic neck pain where he hears grinding in his right side of neck. Sometimes he feels like he's cutting off the "fluid in his brain" so he will rotate and turn his neck a lot. 2 night ago woke up with the same kink but his neck was so hot and he woke in a pool of sweat. He denies chest pain or shortness of breath. No known history of hypertension, hyperlipidemia, palpitations. No blurred vision. No headache. He did take aspirin several hours ago. He doesn't have a PCP. His admission evaluation showed a glucose of 284 and A1c of 10.4. Potassium 3.3. BP 213/84, heart rate 98 in sinus rhythm. Brain imaging showed an acute to subacute right cerebral stroke. The physical exam showed: a left facial droop, slurred/abnml speech, left arm is 2/5, left leg is 3/5 strength, sensation nml (but face and neck burning hot, feet icy cold). The ER provider discussed the case with [place] neurology and he was felt to be out of the window for treating with TPA and was admitted for management of an acute CVA. - HOSPITAL COURSE Hospital Course: (1) Right sided cerebral hemisphere cerebrovascular accident (CVA) He was started on statin, ASA and Plavix. An Echo was done that showed normal LV systolic function, no intracardiac clot or shunt and thickened aortic leaflets, but not suspicious for endocarditis. Telemetry showed no Afib while here. Carotid and vertebral artery Doppler exam was unremarkable. He was started with PT and OT rehab. He was found to be "impulsive", per staff, which is presumably why he fell while here (see below), and thus 1:1 monitoring was or dered. He was seen by Speech Therapy for a complete RBANS assessment, and was found to have slow processing, poor attention and disorientation to space. He started raising his L leg against gravity on 12/24/18. He was felt to be a good candidate for aggressive inpatient rehab post-stroke, and was accepted in transfer to [facility], and transported there by ambulance. (2) Uncontrolled type 2 diabetes mellitus This was a new diagnosis for this man; he previously was a pre-diabetic and on no diabetic meds. Here, he was managed with a carb-controlled diet, Lantus Insulin and sliding scale Reg Insulin. He was not able to be educated on the use of new Insulin or fingerstick checks due to his poor attention and poor processing. (3) Hyperlipidemia associated with type 2 diabetes mellitus His labs showed a cholesterol of 258, LDL 161 and Triglycerides 265. He was put on new Atorvastatin and new Tricor treatment. (4) Hypertension His home med of Lisinopril was continued, but HCTZ was stopped, allowing permissive HTN; parameters were provided for the RNs. (5) Hypokalemia The low Potassium was replaced orally for several days. (6) Fall He had an unwitnessed fall here on 12/20/18; a staff member heard a crash and found him on the floor in his room. He had tried to stand and ambulate without assistance. There were bruises of his left shoulder and arm. He denied syncope and vital signs were stable. He was seen by the Pizza Delivery Driver. XRays of the shoulder and arm showed no fracture or dislocation. (7) Diarrhea On 12/23/18, he had multiple bouts of watery, painless diarrhea. A C.diff result returned neg. His empiric bowel protocol of Colace and Miralax were stopped, Imodium was ordered prn, and there was no further diarrhea by the next day. (8) Elevated LFTs On the day of DCh, his CMP blood test showed new elevation of LFTs (AST 18>> 45, ALT 25>> 89, bili 0.9 >> 1.2 ). The cause was suspected to be the new high dose statin use. His Lipitor 80 mg dose was stopped on 12/24/18, and was planned to be restarted on 12/26/18 at 40 mg qhs. His Tylenol as needed for pain dose was also stopped, as he was also getting Tylenol pm for sleep. (9) Insomnia His home meds of Melatonin and Tylenol pm were used here. - ALLERGIES Allergies/Adverse Reactions: Allergies Allergy/AdvReac Type Severity Reaction Status Date / Time No Known Drug Allergies Allergy Verified 12/19/18 01:19 - MEDICATIONS Home Medications: Ambulatory Orders Medication Instructions Recorded Confirmed Acetaminophen/Diphenhydramine 1 each PO QPM PRN 12/19/18 12/19/18 [Tylenol Pm Ex-Strength Caplet] Aspirin/Acetaminophen/Caffeine 1 each PO DAILY PRN 12/19/18 12/19/18 [Excedrin Migraine Caplet] Melatonin 5 mg PO QPM PRN 12/19/18 12/19/18 - PHYSICAL EXAM AT DISCHARGE General Appearance: positive: No acute distress, Alert Eyes Bilateral: positive: Other (R gaze preference and eyes cross occaisionally) ENT: positive: ENT inspection nml, No signs of dehydration Neck: positive: Nml inspection Respiratory: positive: No respiratory distress, Breath sounds nml Cardiovascular: positive: Regular rate & rhythm, No murmur Abdomen: positive: Non-tender, Nml bowel sounds Extremities: positive: No pedal edema Neurologic/Psychiatric: positive: Disoriented to place, Weakness, Other (L arm weak 0/5, L leg weak 3/5, speech normal) - LABS Result Diagrams: 12/24/18 08:28 12/24/18 08:28 - DIAGNOSTIC IMAGING Diagnostic Imaging Results: Final report reviewed, See rad report - FOLLOW UP Follow Up: This will be determined after his stay at inpatient rehab. - TIME SPENT Time Spent in Discharge (Minutes): 60
--- NOTE | 2018-12-24 15:17 | Discharge Plan ---
Discharge Plan Problem Reviewed?: Yes Disposition: 02 Transfer Acute Care Hosp Condition: Stable Diet: Diabetic Activity Restrictions: Activity as Tolerated No Smoking: If you smoke, Please STOP! Call for help.
[2018-12-24 16:43] VITALS: BP 171/97
[2018-12-25] MEDS ORDERED: INSULIN GLARGINE 300 UNIT/3 ML PEN SUBQ SCH (08:00)
[2018-12-26] MEDS ORDERED: ATORVASTATIN 40 MG TABLET PO SCH (21:00)
== END 2018-12-24 17:00 | disposition short-term general hospital (02) | DRG 65 ==
LOC: ED 00:58 → MS2 02:17 → UNDOADMOB 02:17 → MS3 02:17 → UNDOADMIN 02:17 → OBSVTOIN 10:04 → INTOOBSV 10:04 → UNDODISIN 12-24 17:00
PROVIDERS: ADMIT Specialist; ATTEND Internal Medicine
DX: I63.511 Cerebral infarction due to unspecified occlusion or stenosis of right middle cerebral artery (principal); G81.94 Hemiplegia, unspecified affecting left nondominant side; R29.810 Facial weakness; R47.81 Slurred speech; R29.705 NIHSS score 5; I10 Essential (primary) hypertension; E78.5 Hyperlipidemia, unspecified; E11.65 Type 2 diabetes mellitus with hyperglycemia; E87.6 Hypokalemia; R19.7 Diarrhea, unspecified; G47.00 Insomnia, unspecified; S40.012A Contusion of left shoulder, initial encounter; S50.12XA Contusion of left forearm, initial encounter; W18.30XA Fall on same level, unspecified, initial encounter; Y92.230 Patient room in hospital as the place of occurrence of the external cause; F41.9 Anxiety disorder, unspecified; R79.89 Other specified abnormal findings of blood chemistry; G89.29 Other chronic pain; M54.30 Sciatica, unspecified side; M25.551 Pain in right hip; M54.2 Cervicalgia; R00.2 Palpitations; Z59.7 Insufficient social insurance and welfare support; Z87.891 Personal history of nicotine dependence
CPT/HCPCS: 36415; 70450; 70496; 70498; 70551; 73030; 73090; 80048; 80053; 80061; 80320; 82043; 82570; 83036; 83690; 83735; 84484; 85025; 85027; 85610; 85730; 87040; 87493; 92610; 93005; 93306; 93880; 96125; 97112; 97163; 97166; 97530; 99284; A9270; J1815; J8499; Q9967; 83721

== ENCOUNTER 2019-02-25 08:00 | Outpatient (CLI) | payer MEDICAID | END 2019-02-25 23:59 | disposition home or self-care (01) | LOC: LAB.R 08:00 | PROVIDERS: ATTEND Family Medicine | DX: J06.9 Acute upper respiratory infection, unspecified (principal) | CPT/HCPCS: 87275; 87276 ==

== ENCOUNTER 2019-03-16 08:00 | Outpatient (CLI) | payer MEDICAID ==
[2019-03-16 12:33] LABS: BASOPHILS # (AUTO) 0.1 10^3/uL (0.0-0.1); BASOPHILS % (AUTO) 0.6 %; EOSINOPHILS # (AUTO) 0.4 10^3/uL (0.0-0.7); HGB - HEMOGLOBIN 15.7 g/dL (14.0-18.0); LYMPHOCYTES # (AUTO) 1.6 10^3/uL (1.5-3.5); LYMPHOCYTES % (AUTO) 19.6 %; MEAN CORPUSCULAR HEMOGLOBIN 30.7 pg (27.0-31.0); MEAN CORPUSCULAR HGB CONC 34.7 g/dL (32.0-36.0); MEAN CORPUSCULAR VOLUME 88.3 fL (80.0-94.0); MEAN PLATELET VOLUME 10.1 fL (7.4-11.4); MONOCYTES # (AUTO) 0.8 10^3/uL (0.0-1.0); MONOCYTES % (AUTO) 9.5 %; NEUTROPHILS # (AUTO) 5.2 10^3/uL (1.5-6.6); NEUTROPHILS % (AUTO) 65.1 %; PLT - PLATELET COUNT 409 10^3/uL (130-450); RED BLOOD COUNT 5.12 10^6/uL (4.70-6.10); RED CELL DISTRIBUTION WIDTH 12.6 % (12.0-15.0)
[2019-03-16 12:49] LABS: HB2 TOTAL 15.6 g/dL; HEMOGLOBIN A1C 0.67 g/dL; HEMOGLOBIN A1C % 6.1 % (4.6-6.2)
[2019-03-16 12:58] LABS: ALBUMIN 4.3 g/dL (3.2-5.5); ALBUMIN/GLOBULIN RATIO 1.1 (1.0-2.2); ALKALINE PHOSPHATASE 49 IU/L (42-121); ALT ALANINE AMINOTRANSFERASE 21 IU/L (10-60); AST ASPARTATE AMINOTRANSFERASE 21 IU/L (10-42); BILIRUBIN,TOTAL 0.7 mg/dL (0.2-1.0); BUN - BLOOD UREA NITROGEN 19 mg/dL (6-20); CALCIUM 9.9 mg/dL (8.5-10.3); CARBON DIOXIDE - CO2 30 mmol/L (21-32); CHLORIDE 100 mmol/L (101-111); CHOL/HDL RATIO 3.5 (<5.0); CHOLESTEROL 123 mg/dL; GFR - MDRD 78 (>89); GLUCOSE 136 mg/dL (70-100); HDL CHOLESTEROL 35 mg/dL; LDL CHOLESTEROL,CALCULATED 65 mg/dL; LDL/HDL RATIO 1.9 (<3.6); SODIUM 140 mmol/L (135-145); TOTAL PROTEIN 8.2 g/dL (6.7-8.2); VLDL CHOLESTEROL 23 mg/dL
== END 2019-03-16 23:59 | disposition home or self-care (01) ==
LOC: LAB.N 08:00
PROVIDERS: ATTEND Family Medicine
DX: E11.9 Type 2 diabetes mellitus without complications (principal); E78.5 Hyperlipidemia, unspecified; I10 Essential (primary) hypertension
CPT/HCPCS: 36415; 80053; 80061; 83036; 83721; 84443; 85025

== ENCOUNTER 2019-04-06 10:57 | Outpatient (CLI) | payer MEDICAID ==
--- NOTE | 2019-04-06 12:53 | XRAY Report ---
Reason: SHOULDER PAIN Procedure Date: 04/06/2019 Accession Number: [id number] / [id number] Procedure: XRN - Shoulder 3 View LT CPT Code: Final Report FULL RESULT: EXAM: LEFT SHOULDER RADIOGRAPHY EXAM DATE: 04/06/2019 11:22 AM. CLINICAL HISTORY: Left shoulder pain. Rolled over and felt shoulder dislocate. COMPARISON: SHOULDER 3 VIEW LT 12/23/2018 12:11 PM. TECHNIQUE: 3 views. FINDINGS: Bones: No acute fracture or bony lesion. Degenerative spurring. Joints: Mild inferior subluxation of the left humeral head in relation to the left glenoid. No dislocation. Joint space narrowing of the left acromioclavicular joint. Soft tissues: The visualized hemithorax is unremarkable. No soft tissue swelling. IMPRESSION: 1. Mild inferior subluxation of the left humeral head in relation to the left glenoid. No dislocation. 2. Mild degenerative changes of the left shoulder. RADIA
== END 2019-04-06 10:58 | disposition home or self-care (01) ==
LOC: DI.N 10:57
PROVIDERS: ATTEND Family Medicine
DX: S43.032A Inferior subluxation of left humerus, initial encounter (principal); M19.012 Primary osteoarthritis, left shoulder

== ENCOUNTER 2019-04-06 12:09 | Emergency (ER) | payer MEDICAID ==
[2019-04-06] MEDS ORDERED: oxyCODONE 5 MG TABLET PO STA (12:40)
[2019-04-06] MEDS ORDERED: KETOROLAC 60 MG/2 ML VIAL IM STA (12:40)
--- NOTE | 2019-04-06 13:02 | ED Physician Documentation ---
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 States that his left arm became caught in a blanket last night. He states that he went and saw his doctor today who took x-rays and told him that his arm was dislocated. Sent here for evaluation. He took a Percocet last night which helped. Worse with movement and better with rest. Review of Systems Constitutional: denies: Fever, Myalgias GI: denies: Vomiting, Diarrhea Skin: denies: Rash PD PAST MEDICAL HISTORY - Past Medical History Past Medical History: Yes Cardiovascular: Hypertension, High cholesterol Respiratory: None Neuro: CVA Endocrine/Autoimmune: Type 2 diabetes GI: None : Other HEENT: None Psych: Anxiety Musculoskeletal: Chronic back pain Derm: None - Past Surgical History Past Surgical History: No General: Cholecystectomy - Present Medications Home Medications: Ambulatory Orders Medication Instructions Recorded Confirmed Melatonin 6 mg PO QPM PRN 12/19/18 03/15/19 Aspirin [Aspirin EC] 81 mg PO DAILY 03/15/19 03/15/19 Atorvastatin Calcium 40 mg PO QPM 03/15/19 03/15/19 Clopidogrel Bisulfate [Clopidogrel] 75 mg PO DAILY 03/15/19 03/15/19 Cyclobenzaprine HCl 10 mg PO BID 03/15/19 03/15/19 Fenofibrate 160 mg PO DAILY 03/15/19 03/15/19 Gabapentin 300 - 600 mg PO TID 03/15/19 03/15/19 Lidocaine 2 each TP DAILY 03/15/19 03/15/19 Omeprazole 20 mg PO QPM 03/15/19 03/15/19 Trazodone HCl 100 mg PO QPM 03/15/19 03/15/19 lisinopriL [Lisinopril] 40 mg PO DAILY 03/15/19 03/15/19 Oxycodone HCl/Acetaminophen 1 - 2 each PO Q6H PRN #14 tablet 04/06/19 [Percocet 5-325 mg Tablet] - Allergies Allergies/Adverse Reactions: Allergies Allergy/AdvReac Type Severity Reaction Status Date / Time metformin AdvReac Unknown Verified 04/06/19 12:14 - Social History Does the pt smoke?: Yes Smoking Status: Former smoker Does the pt drink ETOH?: No Does the pt have substance abuse?: No - Immunizations Immunizations are current?: Yes - POLST Patient has POLST: No POLST Status: Full Code PD ED PE NORMAL - Vitals Vital signs reviewed: Yes - General General: Alert and oriented X 3, No acute distress - HEENT HEENT: Moist mucous membranes - Neck Neck: Supple, no meningeal sign - Cardiac Cardiac: RRR - Respiratory Respiratory: No respiratory distress, Clear bilaterally - Derm Derm: Warm and dry - Extremities Extremities: Other (Tender to palpation over the left shoulder. Limited range of motion secondary to pain. Glenohumeral joint feels intact. No deformity. Neurovascularly intact.) - Neuro Neuro: Alert and oriented X 3 Results - Vitals Vitals: Vital Signs - 24 hr 04/06/19 04/06/19 12:14 12:25 Temperature 36.4 C L Heart Rate 90 90 Respiratory 20 20 Rate Blood Pressure 154/104 H 168/100 H O2 Saturation 99 95 Oxygen O2 Source Room air - Rads (name of study) Left shoulder x-ray Radiology: Prelim report reviewed, EMP read contemporaneously, See rad report (Mild inferior subluxation of the left humeral head in relation to the left glenoid. No dislocation. 2. Mild degenerative changes of the left shoulder. ) PD MEDICAL DECISION MAKING - ED course Complexity details: reviewed results, re-evaluated patient, considered differential, d/w patient ED course: Patient with what is likely a chronic subluxation of the left shoulder given his lack of muscle tone in the paralyzed left arm. No dislocation. Neurovascularly intact. Placed in a sling for comfort and will prescribe pain medication for home. We will have him follow-up with orthopedics for repeat evaluation in a week. Patient counseled regarding signs and symptoms for which I believe and urgent re-evaluation would be necessary. Patient with good understanding of and agreement to plan and is comfortable going home at this time This document was made in part using voice recognition software. While efforts are made to proofread this document, sound alike and grammatical errors may occur. Departure - Departure Disposition: 01 Home, Self Care Clinical Impression: Injury of left shoulder Qualifiers: Encounter type: initial encounter Qualified Code(s): S49.92XA - Unspecified injury of left shoulder and upper arm, initial encounter Condition: Good Instructions: ED Sprain Shoulder Follow-Up: NINO MA MD [Primary Care Provider] - [facility] [Provider Group] - Within 1 week Prescriptions: Oxycodone HCl/Acetaminophen [Percocet 5-325 mg Tablet] 1 - 2 each PO Q6H PRN #14 tablet PRN Reason: pain Comments: Return if you worsen. This should improve over the next week or so. Wear the sling as needed for comfort. There is no dislocation on your xray today. Do not drink alcohol or drive while on narcotic pain medicine. Note that many narcotic pain relievers also contain tylenol/acetaminophen. Please ensure that your total dose of acetaminophen from all sources does not exceed 3 grams (3000mg) per day. You may constipated on this medication, take a stool softener such as "Colace" twice a day while you are on it. Also recommend a mldw-wci-zikjvwk laxative such as senna or MiraLAX any day that you do not have a bowel movement. If you received narcotic pain medication in the emergency department, do not drive or operate machinery for the next 24 hours.
[2019-04-06 13:15] VITALS: BP 144/93
== END 2019-04-06 13:25 | disposition home or self-care (01) ==
LOC: ED 12:09
DX: S43.032A Inferior subluxation of left humerus, initial encounter (principal); X50.1XXA Overexertion from prolonged static or awkward postures, initial encounter; Y92.009 Unspecified place in unspecified non-institutional (private) residence as the place of occurrence of the external cause; I69.334 Monoplegia of upper limb following cerebral infarction affecting left non-dominant side; I10 Essential (primary) hypertension; E11.9 Type 2 diabetes mellitus without complications; Z87.891 Personal history of nicotine dependence; M19.012 Primary osteoarthritis, left shoulder
CPT/HCPCS: 96372; 99283; 99284; A9270

== ENCOUNTER 2019-05-12 09:02 | Outpatient (CLI) | payer MEDICAID ==
--- NOTE | 2019-05-12 14:52 | MRI Report ---
Reason: LT SHLDR PAIN Procedure Date: 05/12/2019 Accession Number: [id number] / [id number] Procedure: MRI - Shoulder LT W/O CPT Code: Final Report FULL RESULT: EXAM: LEFT SHOULDER MRI WITHOUT CONTRAST EXAM DATE: 05/12/2019 10:12 AM. CLINICAL HISTORY: Left shoulder pain. COMPARISON: SHOULDER 3 VIEW LT 04/06/2019 11:24 AM. TECHNIQUE: Multiplanar, multisequence T1-weighted and fluid-sensitive sequences of the shoulder without contrast. Other: None. FINDINGS: Acromioclavicular Region: The acromion is type II. Small effusion and mild osteoarthrosis at the AC joint. The coracoacromial and coracoclavicular ligaments are intact. No subacromial/subdeltoid bursal fluid. Glenohumeral Region: No subluxation. Small joint effusion. Synovial thickening is present. No loose bodies. The articular cartilage is unremarkable. The joint capsule and glenohumeral ligaments are thick and slightly hyperintense. Bone Marrow: No fracture, marrow edema or bone lesions. Labrum: Free edge fraying at the superior aspect of the labrum. Musculature/Rotator Cuff: Tendinosis and articular surface fraying at the supraspinatus tendon. There is infraspinatus tendinosis. The teres minor tendon is unremarkable. There is subscapularis tendinosis. No edema or fatty atrophy. Biceps Tendon: The long head of the biceps tendon and biceps brittanie are intact. Other: The subcutaneous tissues are unremarkable. IMPRESSION: 1. Tendinosis and articular surface fraying at the supraspinatus tendon. Infraspinatus and subscapularis tendinosis. 2. Small glenohumeral joint effusion. Synovitis. 3. The joint capsule and glenohumeral ligaments are thick and slightly hyperintense which is probably inflammatory. Clinical correlation with regards to adhesive capsulitis. 4. Small effusion and mild osteoarthrosis at the AC joint. 5. Free edge fraying at the superior aspect of the labrum. RADIA
== END 2019-05-12 09:03 | disposition home or self-care (01) ==
LOC: DI 09:02
PROVIDERS: ATTEND Orthopaedic Surgery Sports Medicine
DX: M19.012 Primary osteoarthritis, left shoulder (principal); M25.412 Effusion, left shoulder; M75.82 Other shoulder lesions, left shoulder; M65.812 Other synovitis and tenosynovitis, left shoulder

== ENCOUNTER 2019-06-26 15:20 | Outpatient (CLI) | payer MEDICAID ==
--- NOTE | 2019-06-27 09:02 | XRAY Report ---
Reason: NECK PAIN Procedure Date: 06/25/2019 Accession Number: [id number] / [id number] Procedure: WCP - Cervical Spine 2 View CPT Code: Final Report FULL RESULT: EXAM: CERVICAL SPINE RADIOGRAPHY EXAM DATE: 06/25/2019 03:20 PM. CLINICAL HISTORY: NECK PAIN. Neck pain with left radiculopathy. No known injury. COMPARISONS: CT NECK ANGIO 12/19/2018 1:32 AM. TECHNIQUE: 3 views. FINDINGS: Alignment: Normal. No spondylolisthesis or scoliosis. Bones: The cervical vertebral bodies and posterior elements are well visualized from the skull base through C7-T1. No fractures or bone lesions. Disks: There are mild degenerative disk changes at the C3-C4, C4-C5, and C5-C6 levels. There is moderate disk height loss and anterior endplate osteophyte formation at the C6-C7 level. Facets: There are mild degenerative facet changes throughout the cervical spine. Soft Tissues: Normal. No prevertebral soft tissue swelling. The visualized lung apices are clear. IMPRESSION: Multilevel mild to moderate degenerative changes of the cervical spine, most advanced at the C6-C7 level. RADIA
== END 2019-06-26 23:59 | disposition home or self-care (01) ==
LOC: DI.WCP 15:20
PROVIDERS: ATTEND Family Medicine
DX: M50.31 Other cervical disc degeneration, high cervical region (principal); M47.812 Spondylosis without myelopathy or radiculopathy, cervical region
CPT/HCPCS: 72040

== ENCOUNTER 2019-11-12 13:39 | Outpatient (CLI) | payer MEDICAID ==
--- NOTE | 2019-11-12 16:07 | MRI Report ---
PROCEDURE: Cervical Spine W/O INDICATIONS: CERVICAL RADICULOPATHY TECHNIQUE: Noncontrast sagittal T1 spin echo and T2 fast spin echo, sagittal STIR, foraminal oblique sagittal T2 fast spin echo, and axial gradient echo or T2 fast spin echo through the cervical spine. COMPARISON: Plain films of the cervical spine dated 06.25.19 FINDINGS: Image quality: Degraded by motion artifact. Alignment and Curvature: There is loss of normal cervical lordosis. Bone Marrow: Marrow demonstrates normal overall signal. Mild reactive signal within the end plates adjacent to the C3-C4, C5-C6, and C6-C7 intervertebral discs. Spinal Cord: Visualized spinal cord has normal size and signal. No cerebellar tonsillar herniation. Paraspinous Soft Tissues: No paravertebral masses. Prevertebral soft tissues are normal in thicknes s. C2-C3: Moderate disc desiccation. Mild diffuse disc bulge. Mild facet and uncovertebral hypertrophy. Mild canal stenosis. Mild bilateral foraminal stenosis. C3-C4: Moderate disc desiccation. Mild disc height loss. Mild diffuse disc bulge. Mild facet and un covertebral hypertrophy bilaterally. Mild canal stenosis. Mild left greater than right foraminal sten osis. C4-C5: Moderate disc desiccation. Mild diffuse disc bulge. Mild facet and uncovertebral hypertrophy bilaterally. Mild canal stenosis. Mild left greater than right foraminal stenosis. C5-C6: Moderate disc height loss and desiccation. Moderate diffuse disc bulge. Moderate facet and un covertebral hypertrophy bilaterally. Mild canal stenosis. Severe bilateral foraminal stenosis with bi lateral C6 nerve root compression. C6-C7: Moderate disc height loss and desiccation. Mild diffuse disc bulge. Mild facet and uncoverteb ral hypertrophy bilaterally. Mild canal stenosis. Moderate bilateral foraminal stenosis. C7-T1: Mild disc height loss and desiccation. Mild diffuse disc bulge. Mild bilateral facet and unco vertebral hypertrophy. Mild canal stenosis. Mild bilateral foraminal stenosis. IMPRESSION: 1. Multilevel degenerative disc and facet disease, as well as uncovertebral hypertrophy. 2. Mild multilevel canal stenoses. 3. Multilevel foraminal stenoses, worst at C5-C6, where there is associated intraforaminal nerve root compression. Recommend correlation with clinical symptoms to ascertain relevance of these findings. Reviewed by: Tyron Redd MD on 11/12/2019 4:06 PM PDT Approved by: Tyron Redd MD on 11/12/2019 4:06 PM PDT Station ID: [id number]
== END 2019-11-12 13:40 | disposition home or self-care (01) ==
LOC: DI 13:39
PROVIDERS: ATTEND Family Medicine
DX: M47.812 Spondylosis without myelopathy or radiculopathy, cervical region (principal); M50.31 Other cervical disc degeneration, high cervical region; M48.02 Spinal stenosis, cervical region
CPT/HCPCS: 72141

== ENCOUNTER 2020-02-11 16:22 | Outpatient (CLI) | payer MEDICAID ==
--- NOTE | 2020-02-15 14:54 | Ultrasound Report ---
PROCEDURE: Ankle Brachial Index INDICATIONS: VASCULAR DISEASE TECHNIQUE: Ankle-brachial indices were obtained bilaterally and recorded. COMPARISONS: None. FINDINGS: Right ankle brachial index (LATISHA): 1.0 Left ankle brachial index (LATISHA): 1.1 Healing potential: Ankle pressures >55 mm Hg in non-diabetics and >80 mm Hg in diabetics are likely to achieve primary h ealing of ischemic foot ulcers. Toe pressures >30 mm Hg are likely to achieve primary healing of ischemic foot ulcers, toe or transme tatarsal amputations. IMPRESSION: Normal brachial brachial indices. Reviewed by: Porsche Fitzpatrick MD on 02/15/2020 2:53 PM PST Approved by: Porsche Fitzpatrick MD on 02/15/2020 2:53 PM PST Station ID: [id number]
== END 2020-02-11 16:23 | disposition home or self-care (01) ==
LOC: DI 16:22
PROVIDERS: ATTEND Internal Medicine
DX: I99.9 Unspecified disorder of circulatory system (principal)
CPT/HCPCS: 93922

== ENCOUNTER 2020-03-30 14:26 | Outpatient (CLI) | payer MEDICAID ==
[2020-03-30 18:00] LABS: BASOPHILS # (AUTO) 0.1 10^3/uL (0.0-0.1); BASOPHILS % (AUTO) 0.9 %; EOSINOPHILS # (AUTO) 0.3 10^3/uL (0.0-0.7); EOSINOPHILS % (AUTO) 3.4 %; HGB - HEMOGLOBIN 15.4 g/dL (14.0-18.0); LYMPHOCYTES # (AUTO) 2.1 10^3/uL (1.5-3.5); LYMPHOCYTES % (AUTO) 26.2 %; MEAN CORPUSCULAR HEMOGLOBIN 30.3 pg (27.0-31.0); MEAN CORPUSCULAR HGB CONC 33.6 g/dL (32.0-36.0); MEAN CORPUSCULAR VOLUME 90.2 fL (80.0-94.0); MEAN PLATELET VOLUME 10.4 fL (7.4-11.4); MONOCYTES # (AUTO) 0.7 10^3/uL (0.0-1.0); MONOCYTES % (AUTO) 8.1 %; NEUTROPHILS # (AUTO) 4.9 10^3/uL (1.5-6.6); NEUTROPHILS % (AUTO) 61.3 %; PLT - PLATELET COUNT 303 10^3/uL (130-450); RED BLOOD COUNT 5.08 10^6/uL (4.70-6.10); RED CELL DISTRIBUTION WIDTH 12.4 % (12.0-15.0)
[2020-03-30 18:15] LABS: ALBUMIN 4.5 g/dL (3.2-5.5); ALBUMIN/GLOBULIN RATIO 1.3 (1.0-2.2); ALKALINE PHOSPHATASE 46 IU/L (42-121); ALT ALANINE AMINOTRANSFERASE 22 IU/L (10-60); AST ASPARTATE AMINOTRANSFERASE 21 IU/L (10-42); BILIRUBIN,TOTAL 0.9 mg/dL (0.2-1.0); BUN - BLOOD UREA NITROGEN 26 mg/dL (6-20); CALCIUM 9.2 mg/dL (8.5-10.3); CARBON DIOXIDE - CO2 28 mmol/L (21-32); CHLORIDE 98 mmol/L (101-111); CHOL/HDL RATIO 2.7 (<5.0); CHOLESTEROL 130 mg/dL; CREATININE 1.2 mg/dL (0.6-1.2); GLUCOSE 114 mg/dL (70-100); HDL CHOLESTEROL 48 mg/dL; LDL CHOLESTEROL,CALCULATED 69 mg/dL; LDL/HDL RATIO 1.4 (<3.6); TOTAL PROTEIN 7.9 g/dL (6.7-8.2); VLDL CHOLESTEROL 13 mg/dL
== END 2020-03-30 14:27 | disposition home or self-care (01) ==
LOC: LAB.WCP 14:26
PROVIDERS: ATTEND Internal Medicine
DX: E11.9 Type 2 diabetes mellitus without complications (principal)
CPT/HCPCS: 36415; 80053; 80061; 82043; 82570; 83036; 83721; 84443; 85025

== ENCOUNTER 2020-04-12 14:46 | Outpatient (CLI) | payer MEDICAID ==
--- NOTE | 2020-04-13 10:48 | Ultrasound Report ---
PROCEDURE: Carotid Doppler Complete INDICATIONS: VASCULAR DISEASE TECHNIQUE: Color and pulse Doppler interrogation was performed of both carotid systems, with image documentation and velocity measurements. COMPARISON: Carotid ultrasound 12/19/2018. FINDINGS: Right side: Common carotid artery peak systolic velocity: 106 cm/sec. Internal carotid artery peak systolic velocity: 63 cm/sec. Internal carotid artery end diastolic velocity: 29 cm/sec. External carotid artery peak systolic velocity: 104 cm/sec. ICA/CCA peak systolic ratio: 0.6 . Donohue scale imaging description: Moderate plaque is present at the bifurcation. Percent internal carotid artery stenosis: Less than 50% stenosis . Vertebral artery: Flow direction is antegrade. Left side: Common carotid artery peak systolic velocity: 85 cm/sec. Internal carotid artery peak systolic velocity: 57 cm/sec. Internal carotid artery end diastolic velocity: 23 cm/sec. External carotid artery peak systolic velocity: 75 cm/sec. ICA/CCA peak systolic ratio: 0.7. Donohue scale imaging description: Moderate plaque at the bifurcation. Percent internal carotid artery stenosis: Less than 50% . Vertebral artery: Flow direction is antegrade. IMPRESSION: Less than 50% stenosis of the internal carotid arteries bilaterally, stable compared to prior exam. The estimate of stenosis included in the report of the imaging study was calculated using the NASCET method Reviewed by: Porsche Fitzpatrick MD on 04/13/2020 10:47 AM PST Approved by: Porsche Fitzpatrick MD on 04/13/2020 10:47 AM PST Station ID: [id number]
== END 2020-04-12 14:47 | disposition home or self-care (01) ==
LOC: DI 14:46
PROVIDERS: ATTEND Internal Medicine
DX: I99.9 Unspecified disorder of circulatory system (principal); I69.354 Hemiplegia and hemiparesis following cerebral infarction affecting left non-dominant side
CPT/HCPCS: 93880

== ENCOUNTER 2021-04-27 10:29 | Outpatient (CLI) | payer MEDICAID ==
[2021-04-27 17:55] LABS: BASOPHILS # (AUTO) 0.1 10^3/uL (0.0-0.1); BASOPHILS % (AUTO) 0.7 %; EOSINOPHILS # (AUTO) 0.4 10^3/uL (0.0-0.7); EOSINOPHILS % (AUTO) 4.4 %; HGB - HEMOGLOBIN 14.9 g/dL (14.0-18.0); LYMPHOCYTES # (AUTO) 2.1 10^3/uL (1.5-3.5); LYMPHOCYTES % (AUTO) 25.1 %; MEAN CORPUSCULAR HEMOGLOBIN 30.3 pg (27.0-31.0); MEAN CORPUSCULAR HGB CONC 34.7 g/dL (32.0-36.0); MEAN CORPUSCULAR VOLUME 87.6 fL (80.0-94.0); MEAN PLATELET VOLUME 10.8 fL (7.4-11.4); MONOCYTES # (AUTO) 0.9 10^3/uL (0.0-1.0); MONOCYTES % (AUTO) 10.5 %; NEUTROPHILS % (AUTO) 59.1 %; PLT - PLATELET COUNT 305 10^3/uL (130-450); RED BLOOD COUNT 4.91 10^6/uL (4.70-6.10); RED CELL DISTRIBUTION WIDTH 12.9 % (12.0-15.0); WHITE BLOOD COUNT 8.5 x10^3/uL (4.8-10.8)
[2021-04-27 18:20] LABS: ESTIMATED AVERAGE GLUCOSE 160 mg/dL (70-100); HEMOGLOBIN A1c% 7.2 % (4.27-6.07)
[2021-04-27 18:23] LABS: ALBUMIN/GLOBULIN RATIO 1.1 (1.0-2.2); ALKALINE PHOSPHATASE 43 IU/L (42-121); ALT ALANINE AMINOTRANSFERASE 24 IU/L (10-60); AST ASPARTATE AMINOTRANSFERASE 21 IU/L (10-42); BILIRUBIN,TOTAL 0.7 mg/dL (0.2-1.0); BUN - BLOOD UREA NITROGEN 21 mg/dL (6-20); CALCIUM 9.2 mg/dL (8.5-10.3); CARBON DIOXIDE - CO2 27 mmol/L (21-32); CHLORIDE 99 mmol/L (101-111); CHOL/HDL RATIO 2.8 (<5.0); CHOLESTEROL 122 mg/dL; CREATININE 1.2 mg/dL (0.6-1.2); GFR - MDRD 63 (>89); GLUCOSE 156 mg/dL (70-100); HDL CHOLESTEROL 43 mg/dL; LDL CHOLESTEROL,CALCULATED 68 mg/dL; LDL/HDL RATIO 1.6 (<3.6); SODIUM 135 mmol/L (135-145); TOTAL PROTEIN 7.6 g/dL (6.7-8.2); TRIGLYCERIDES 56 mg/dL; VLDL CHOLESTEROL 11 mg/dL
[2021-04-27 18:29] LABS: CREATININE,URINE 164.3 mg/dL; MICROALBUM/CREATININE RATIO,UR 4.3 ug/mg (<30.0); MICROALBUMIN,URINE 0.7 mg/dL (0-300.0)
[2021-04-27 18:33] LABS: THYROID STIMULATING HORMONE 0.85 uIU/mL (0.34-5.60)
== END 2021-04-27 10:30 | disposition home or self-care (01) ==
LOC: LAB.N 10:29
PROVIDERS: ATTEND Internal Medicine
DX: I10 Essential (primary) hypertension (principal); E78.5 Hyperlipidemia, unspecified; R73.03 Prediabetes; Z12.5 Encounter for screening for malignant neoplasm of prostate; F41.9 Anxiety disorder, unspecified; F32.A Depression, unspecified
CPT/HCPCS: 36415; 80053; 80061; 82043; 82570; 83036; 83721; 84153; 84443; 85025

== ENCOUNTER 2021-12-24 12:10 | Outpatient (CLI) | payer MEDICARE, MEDICAID ==
[2021-12-24 17:37] LABS: BASOPHILS # (AUTO) 0.1 10^3/uL (0.0-0.1); BASOPHILS % (AUTO) 0.9 %; EOSINOPHILS # (AUTO) 0.5 10^3/uL (0.0-0.7); EOSINOPHILS % (AUTO) 6.7 %; HCT - HEMATOCRIT 45.6 % (42.0-52.0); HGB - HEMOGLOBIN 15.5 g/dL (14.0-18.0); LYMPHOCYTES # (AUTO) 1.9 10^3/uL (1.5-3.5); LYMPHOCYTES % (AUTO) 24.1 %; MEAN CORPUSCULAR HEMOGLOBIN 29.8 pg (27.0-31.0); MEAN CORPUSCULAR VOLUME 87.7 fL (80.0-94.0); MEAN PLATELET VOLUME 10.9 fL (7.4-11.4); MONOCYTES # (AUTO) 0.8 10^3/uL (0.0-1.0); MONOCYTES % (AUTO) 9.8 %; NEUTROPHILS # (AUTO) 4.5 10^3/uL (1.5-6.6); NEUTROPHILS % (AUTO) 58.4 %; PLT - PLATELET COUNT 319 10^3/uL (130-450); RED CELL DISTRIBUTION WIDTH 12.9 % (12.0-15.0); WHITE BLOOD COUNT 7.8 x10^3/uL (4.8-10.8)
[2021-12-24 17:56] LABS: ALBUMIN 4.2 g/dL (3.2-5.5); ALBUMIN/GLOBULIN RATIO 1.1 (1.0-2.2); ALKALINE PHOSPHATASE 45 IU/L (42-121); ALT ALANINE AMINOTRANSFERASE 18 IU/L (10-60); AST ASPARTATE AMINOTRANSFERASE 19 IU/L (10-42); BILIRUBIN,TOTAL 0.6 mg/dL (0.2-1.0); BUN - BLOOD UREA NITROGEN 25 mg/dL (6-20); CALCIUM 9.3 mg/dL (8.5-10.3); CARBON DIOXIDE - CO2 27 mmol/L (21-32); CHLORIDE 99 mmol/L (101-111); CHOL/HDL RATIO 3.4 (<5.0); CHOLESTEROL 146 mg/dL; CREATININE 1.1 mg/dL (0.6-1.2); GFR - MDRD 69 (>89); GLUCOSE 126 mg/dL (70-100); HDL CHOLESTEROL 43 mg/dL; LDL CHOLESTEROL,CALCULATED 87 mg/dL; POTASSIUM 4.2 mmol/L (3.5-5.0); SODIUM 137 mmol/L (135-145); TOTAL PROTEIN 7.9 g/dL (6.7-8.2); TRIGLYCERIDES 78 mg/dL; VLDL CHOLESTEROL 16 mg/dL
[2021-12-24 18:02] LABS: MICROALBUM/CREATININE RATIO,UR 2.8 ug/mg (<30.0); MICROALBUMIN,URINE 0.3 mg/dL (0-300.0)
[2021-12-24 21:32] LABS: ESTIMATED AVERAGE GLUCOSE 154 mg/dL (70-100)
== END 2021-12-24 12:11 | disposition home or self-care (01) ==
LOC: LAB.N 12:10
PROVIDERS: ATTEND Internal Medicine
DX: E11.9 Type 2 diabetes mellitus without complications (principal); E78.5 Hyperlipidemia, unspecified
CPT/HCPCS: 36415; 80053; 80061; 82043; 82570; 83036; 83721; 85025

== ENCOUNTER 2022-07-11 10:39 | Outpatient (CLI) | payer MEDICARE, MEDICAID ==
--- NOTE | 2022-07-11 17:50 | XRAY Report ---
PROCEDURE: Hand 3 View RT INDICATIONS: ARTHRALGIA. TECHNIQUE: 3 views of the hand(s) acquired. COMPARISON: None. FINDINGS: Bones: No fractures or dislocations. No suspicious bony lesions. Mild polyarticular degenerative changes most pronounced in the distal distribution, for example the first digit IP joint and scattere d in the right joint. Periventricular lucencies also present indeterminate for subchondral cystic eryn nge or erosions. Soft tissues: No suspicious soft tissue calcifications . IMPRESSION: No acute bony abnormality. If pain persists with conservative management, consider repeat radiographs in 10-14 days or cross-sectional imaging. Reviewed by: Ulices Colin MD on 07/11/2022 5:48 PM PDT Approved by: Ulices Colin MD on 07/11/2022 5:48 PM PDT Station ID: [id number]
== END 2022-07-11 10:40 | disposition home or self-care (01) ==
LOC: DI.N 10:39
PROVIDERS: ATTEND Internal Medicine
DX: M79.641 Pain in right hand (principal); E11.9 Type 2 diabetes mellitus without complications; E78.5 Hyperlipidemia, unspecified; I10 Essential (primary) hypertension
CPT/HCPCS: 36415; 80053; 80061; 82043; 82570; 83036; 83721; 85025; 85651; 86038; 86140; 86200; 86225; 86235; 86430

== ENCOUNTER 2022-07-11 10:55 | Outpatient (CLI) | payer MEDICARE, MEDICAID ==
[2022-07-11 18:17] LABS: BASOPHILS # (AUTO) 0.1 10^3/uL (0.0-0.1); BASOPHILS % (AUTO) 0.8 %; EOSINOPHILS # (AUTO) 0.6 10^3/uL (0.0-0.7); EOSINOPHILS % (AUTO) 6.9 %; HCT - HEMATOCRIT 48.1 % (42.0-52.0); HGB - HEMOGLOBIN 15.9 g/dL (14.0-18.0); LYMPHOCYTES # (AUTO) 1.8 10^3/uL (1.5-3.5); LYMPHOCYTES % (AUTO) 22.3 %; MEAN CORPUSCULAR HEMOGLOBIN 29.6 pg (27.0-31.0); MEAN CORPUSCULAR HGB CONC 33.1 g/dL (32.0-36.0); MEAN CORPUSCULAR VOLUME 89.6 fL (80.0-94.0); MEAN PLATELET VOLUME 10.8 fL (7.4-11.4); MONOCYTES # (AUTO) 0.7 10^3/uL (0.0-1.0); MONOCYTES % (AUTO) 8.8 %; NEUTROPHILS # (AUTO) 4.9 10^3/uL (1.5-6.6); NEUTROPHILS % (AUTO) 60.9 %; PLT - PLATELET COUNT 316 10^3/uL (130-450); RED BLOOD COUNT 5.37 10^6/uL (4.70-6.10); RED CELL DISTRIBUTION WIDTH 13.6 % (12.0-15.0)
[2022-07-11 18:34] LABS: ALBUMIN 4.3 g/dL (3.2-5.5); ALBUMIN/GLOBULIN RATIO 1.2 (1.0-2.2); ALKALINE PHOSPHATASE 46 IU/L (42-121); ALT ALANINE AMINOTRANSFERASE 23 IU/L (10-60); AST ASPARTATE AMINOTRANSFERASE 19 IU/L (10-42); BILIRUBIN,TOTAL 0.9 mg/dL (0.2-1.0); BUN - BLOOD UREA NITROGEN 25 mg/dL (6-20); CALCIUM 9.4 mg/dL (8.5-10.3); CARBON DIOXIDE - CO2 29 mmol/L (21-32); CHLORIDE 104 mmol/L (101-111); CHOL/HDL RATIO 3.3 (<5.0); CHOLESTEROL 145 mg/dL; CREATININE 1.2 mg/dL (0.6-1.2); GFR - MDRD 63 (>89); GLUCOSE 173 mg/dL (70-100); HDL CHOLESTEROL 44 mg/dL; LDL CHOLESTEROL,CALCULATED 82 mg/dL; LDL/HDL RATIO 1.9 (<3.6); POTASSIUM 4.2 mmol/L (3.5-5.0); SODIUM 139 mmol/L (135-145); TOTAL PROTEIN 7.9 g/dL (6.7-8.2); TRIGLYCERIDES 94 mg/dL; VLDL CHOLESTEROL 19 mg/dL
[2022-07-11 18:41] LABS: CRP - C-REACTIVE PROTEIN < 1.0 mg/dL (0-1.0)
[2022-07-11 19:31] LABS: RHEUMATOID FACTOR NEGATIVE (Negative)
[2022-07-11 20:50] LABS: ESTIMATED AVERAGE GLUCOSE 194 mg/dL (70-100); HEMOGLOBIN A1c% 8.4 % (4.27-6.07)
[2022-07-15 18:06] LABS: CYCLIC CITRULLINATED PEP IGG/A 7 units (0-19)
[2022-07-16 15:08] LABS: ANTINUCLEAR ANTIBODIES IFA Negative (.)
== END 2022-07-11 10:56 | disposition home or self-care (01) ==
LOC: LAB.N 10:55
PROVIDERS: ATTEND Internal Medicine
DX: E11.9 Type 2 diabetes mellitus without complications (principal); E78.5 Hyperlipidemia, unspecified; I10 Essential (primary) hypertension; M25.50 Pain in unspecified joint
CPT/HCPCS: 36415; 80053; 80061; 82043; 82570; 83036; 83721; 85025; 85651; 86038; 86140; 86200; 86225; 86235; 86430